=== PATIENT | female | born 1985 | race Caucasian/White ===

== ENCOUNTER 2019-05-28 12:50 | Emergency (ER) | payer BC ==
--- NOTE | 2019-05-28 13:31 | EDM.PDOC ---
ED HPI GENERAL MEDICAL PROBLEM - General Chief Complaint: Lower Extremity Injury/Pain Stated Complaint: L ANKLE INJURY Time Seen by Provider: 05/28/19 13:20 Source of Information: Reports: Patient, Family (spouse) - History of Present Illness INITIAL COMMENTS - FREE TEXT/NARRATIVE: 33-year-old female presents to the ED for evaluation of left lower extremity injury last evening. She states her dogs had soiled one of the rugs in the bathroom and she went to remove it and slipped on the wet floor falling to the floor. Patient has previous fracture of the heel aspect of her ankle requiring open reduction internal fixation in September of last year. Initially she just thought it was bruised but one of her kids actually bumped her ankle this morning and made her cry it was so painful. Is able to partially weight-bear. His pain in her foot ankle and knee on the left side. Onset: Sudden Onset Date: 05/27/19 Onset Time: 20:00 Duration: Hour(s): Location: Reports: Lower Extremity, Left (Has pain left ankle left foot and left knee.) Quality: Reports: Ache, Throbbing Severity: Moderate Improves with: Reports: Rest Worsens with: Reports: Movement (Partial weightbearing and movement.) Context: Reports: Trauma (Left on a wet floor. Occurred in the bathroom at home. ). 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 Left Ankle Pain Score (Numeric/FACES): 5 - Related Data Allergies Allergy/AdvReac Type Severity Reaction Status Date / Time No Known Allergies Allergy Verified 05/28/19 13:01 Home Meds: Home Meds Venlafaxine [Effexor XR] 150 mg PO DAILY 05/28/19 [History] oxyCODONE HCl/Acetaminophen [Percocet 5-325 mg Tablet] 1 - 2 each PO Q4H PRN # 16 tablet 05/28/19 [Rx] Past Medical History Psychiatric History: Reports: Anxiety, Depression - Past Surgical History Musculoskeletal Surgical History: Reports: Other (See Below) Other Musculoskeletal Surgeries/Procedures:: ankle surgery, wrist surgery, elbow surgery, hip surgery Social & Family History - Tobacco Use Smoking Status *Q: Current Every Day Smoker Years of Tobacco use: 16 Packs/Tins Daily: 0.1 - Caffeine Use Caffeine Use: Reports: Coffee - Recreational Drug Use Recreational Drug Use: No Review of Systems - Review of Systems Review Of Systems: See Below Constitutional: Reports: No Symptoms Eyes: Reports: No Symptoms Ears: Reports: No Symptoms Nose: Reports: No Symptoms Mouth/Throat: Reports: No Symptoms Respiratory: Reports: No Symptoms Cardiovascular: Reports: No Symptoms GI/Abdominal: Reports: No Symptoms Genitourinary: Reports: No Symptoms (Left ankle and knee and foot pain since slipping and falling last night.) Musculoskeletal: Reports: Joint Pain Skin: Reports: No Symptoms Neurological: Reports: No Symptoms Psychiatric: Reports: No Symptoms ED EXAM, GENERAL - Physical Exam Exam: See Below Exam Limited By: No Limitations General Appearance: Alert, WD/WN, Mild Distress, Other (Temp 36.6. Heart rate 100. Respiratory is 16 with O2 sats 100% on room air. BP 105//78) Peripheral Pulses: 3+: Posterior Tibial (L), Posterior Tibial (R), Dorsalis Pedis (L), Dorsalis Pedis (R) Extremities: Other (Examination was limited to the left lower extremity. She is complaining of knee pain but there is no traumatic effusion within the knee. No femoral articulation is normal. She has some pain along the medial joint space and particularly the MCL at the joint space. She has pain in her tib-fib particularly posteriorly in the distribution of the gastrocnemius and soleus muscles at the juncture of the Achilles tendon posteriorly. A healing surgical wound medial aspect of the right ankle which is still reddened. His swelling both medial and lateral aspects of the ankle. He has pain to palpation over fifth metatarsal head and squeeze test of the medics) Neurological: Alert, Oriented, CN II-XII Intact, Normal Cognition, Normal Gait Psychiatric: Normal Affect, Normal Mood Skin Exam: Warm, Dry, Intact, Normal Color, No Rash ED TRAUMA EXTREMITY PROCEDURES - Splinting Left Lower Extremity Splint Site: below knee splint Pre-Procedure NV Status: Normal Post-Procedure NV Status: Normal Splint Material: Fiberglass Splint Design: Stirrup, Posterior Applied & Form Fitted By: Provider Provider Post-Splint Application NV Check: NV Status Normal Complications: No Course - Vital Signs Last Recorded V/S: Last Vital Signs Temp 36.6 C 05/28/19 12:57 Pulse 100 05/28/19 12:57 Resp 16 05/28/19 12:57 BP 105/78 05/28/19 12:57 Pulse Ox 100 05/28/19 12:57 - Orders/Labs/Meds Orders: Active Orders 24 hr Category Date Time Status Foot Comp Min 3V Lt [CR] Stat Exams 05/28/19 13:25 Taken Tibia Fibula Lt [CR] Stat Exams 05/28/19 13:23 Taken DME for Discharge [COMM] Routine Oth 05/28/19 15:46 Ordered Durable Medical Equipment for Discharge [DME for Oth 05/28/19 15:47 Ordered Discharge] [COMM] Stat - Radiology Interpretation Free Text/Narrative:: 33-year-old female presents to the ED with an acute injury to her left lower extremity that occurred last evening at home when she slipped on wet bathroom floor. She states she slipped bad enough and twisted the foot and ankle bad enough to cause her to fall to the floor. She's had open reduction internal fixation of the medial aspect of her ankle in September of last year. She still has an angry slightly keloid erythematous scar on the medial aspect of her left there is no true traumatic effusion of the knee. She has some pain along the medial collateral ligament of the knee. She has pain on firm palpation of the posterior calf and mid tib-fib. Strain the Achilles tendon area Pain and swelling both medial and lateral aspects of the ankle and pain on compression of the fifth metatarsal as well. Plan she will require x-rays of the tib-fib the ankle and the foot on the left side. - Re-Assessments/Exams Free Text/Narrative Re-Assessment/Exam: 05/28/19 15:30: I have spoken with Dr. Patel and he has reviewed her x-rays as she has a fracture of the distal posterior malleolus articular extension and minimal displacement. He indicates that is not large enough to require surgical management. For the patient was placed in a posterior slab Ortho-Glass splint and a Ortho-Glass stirrup splint to maintain current position of the bone fragments. Now is too painful for her to get back in her cast boot brace. To 12 days after he reviews her in clinic she will be able to use the cast boot brace. In the meantime she'll be nonweightbearing crutch walking. She will elevate the foot is much as possible for the next 2-3 days and apply ice pack one half hour out of every 4 hours. I did provide her with Percocet tabs 5/3/25 milligrams strength one or 2 every 4-6 hours as needed for pain relief not controlled by Motrin alone. 16 tablet provided. She is to phone Dr. Patel's office and arrange her own appointment. Departure - Departure Time of Disposition: 15:44 Disposition: Home, Self-Care 01 Condition: Fair Clinical Impression: Fracture of tibia MCL sprain of left knee Qualifiers: Encounter type: initial encounter Qualified Code(s): S83.412A - Sprain of medial collateral ligament of left knee, initial encounter Left ankle sprain Qualifiers: Encounter type: initial encounter Involved ligament of ankle: calcaneofibular ligament Qualified Code(s): S93.412A - Sprain of calcaneofibular ligament of left ankle, initial encounter Fracture of distal end of left tibia Qualifiers: Encounter type: initial encounter Fracture type: closed Fracture alignment: displaced - Discharge Information *PRESCRIPTION DRUG MONITORING PROGRAM REVIEWED*: Not Applicable *COPY OF PRESCRIPTION DRUG MONITORING REPORT IN PATIENT GABRIELLA: Not Applicable Prescriptions: oxyCODONE HCl/Acetaminophen [Percocet 5-325 mg Tablet] 1 - 2 each PO Q4H PRN # 16 tablet PRN Reason: pain relief. Referrals: PCP,None [Primary Care Provider] - Forms: ED Department Discharge Additional Instructions: Evaluation emergency him today in regards to acute injury to your left ankle and knee due to a slip and fall on wet surface in the bathroom yesterday evening. Examination of your knee reveals a grade 1 strain of the medial collateral ligament. This will heal on its own over the next 10-14 days. The tib -fib reveal there is a small fracture of the posterior malleolus of the tibia bone but not large enough to require surgical repair. I did consult with orthopedic surgeon in this regard. He did not disrupt any of your hardware on the medial aspect of your ankle from previous injury in September of last year. He is sprain of the ligaments on the lateral aspect of the ankle. There are no fractures within your foot bones. It is therefore a posterior slab and Ortho- Glass stirrup splint that should be left in place for the next 10-12 days and then after that it could be removed and likely he will build to tolerate your cast boot brace. Phone Dr. Patel's office and arrange an appointment. His number is [phone]. Ideally he should see you in about 10-12 days time. Elevate her foot is much as possible for the next 2 days. May apply ice pack even over the splint for one half hour out of every 4 hours for the next 2 days to help reduce swelling. Nonweightbearing crutch walking until follow-up with orthopedic surgeon. May use Motrin 600 mg every 6 hours to reduce pain and inflammation. May then use Percocet tablets 5/325 mg one or 2 tablets every 4-6 hours necessary for pain relief not provided by Motrin alone. She the pain the last 3 or 4 days and then start to resolve once the swelling goes down. Sepsis Event Note - Evaluation Sepsis Screening Result: No Definite Risk - Focused Exam Vital Signs: Vital Signs Temp Pulse Resp BP Pulse Ox 05/28/19 12:57 36.6 C 100 16 105/78 100 Date Exam was Performed: 05/28/19 Time Exam was Performed: 15:51 - My Orders Last 24 Hours: My Active Orders 05/28/19 13:23 Tibia Fibula Lt [CR] Stat 05/28/19 13:25 Foot Comp Min 3V Lt [CR] Stat 05/28/19 15:46 DME for Discharge [COMM] Routine 05/28/19 15:47 Durable Medical Equipment for Discharge [DME for Discharge] [COMM] Stat - Assessment/Plan Last 24 Hours: My Active Orders 05/28/19 13:23 Tibia Fibula Lt [CR] Stat 05/28/19 13:25 Foot Comp Min 3V Lt [CR] Stat 05/28/19 15:46 DME for Discharge [COMM] Routine 05/28/19 15:47 Durable Medical Equipment for Discharge [DME for Discharge] [COMM] Stat
--- NOTE | 2019-05-28 15:30 | CR ---
Left ankle: Four views of the left ankle were obtained. Comparison: No previous left ankle study. Plate and screws are noted within the distal tibia. Fracture is noted within the lateral corner of the tibia. This fracture shows articular extension as well as slight displacement. Fracture line is widened by about 3 mm. Ankle mortise is symmetric. No additional fracture or other abnormality is appreciated. Impression: 1. Fracture within the lateral tip of the distal tibia with articular extension and minimal displacement. 2. No additional abnormality is appreciated. Diagnostic code #3 This report was dictated in [place] Standard Time
--- NOTE | 2019-05-28 15:58 | CR ---
Left tibia and fibula: AP and lateral views of the left tibia and fibula were obtained. Fracture is again noted off the lateral corner of the distal tibia. Articular extension is seen with mild displacement. Plate and screws are noted within the distal tibia. No additional fracture or other bony abnormality is seen. Impression: 1. Fracture within the lateral corner of the distal tibia with articular extension. 2. Left tibia and fibula study shows nothing else acute. Diagnostic code #3 This report was dictated in [place] Standard Time
--- NOTE | 2019-05-28 15:58 | CR ---
Left foot: Four views of the left foot were obtained. Comparison: No prior left foot exam. Orthopedic hardware is seen within the distal tibia. Joint spaces are preserved. No acute fracture or other abnormality is seen. Impression: 1. Nothing acute is seen on left foot study. Diagnostic code #2 This report was dictated in [place] Standard Time
== END 2019-05-28 16:00 | disposition home or self-care (01) ==
LOC: JD.ED 12:50
DX: S82.302A Unspecified fracture of lower end of left tibia, initial encounter for closed fracture (principal); S83.412A Sprain of medial collateral ligament of left knee, initial encounter; S93.412A Sprain of calcaneofibular ligament of left ankle, initial encounter; F41.9 Anxiety disorder, unspecified; F32.9 Major depressive disorder, single episode, unspecified; F17.210 Nicotine dependence, cigarettes, uncomplicated; Z79.899 Other long term (current) drug therapy; W01.0XXA Fall on same level from slipping, tripping and stumbling without subsequent striking against object, initial encounter
CPT/HCPCS: 29515; 73590-26-LT; 73590-LT; 73610-26-LT; 73610-LT; 73630-26-LT; 73630-LT; 99283; 99283-25

== ENCOUNTER 2019-08-14 12:16 | Emergency (ER) | payer BC, MEDICAID ==
[2019-08-14] MEDS ORDERED: FLU Vacc QS2019-20(6MOS+)/PF 60 MCG/0.5 ML SYRINGE IM ONE (13:15)
--- NOTE | 2019-08-14 15:19 | EDM.PDOC ---
ED HPI GENERAL MEDICAL PROBLEM - General Chief Complaint: Respiratory Problem Stated Complaint: CONGESTED,HEADACHE Time Seen by Provider: 08/14/19 13:26 Source of Information: Reports: Patient, RN Notes Reviewed - History of Present Illness INITIAL COMMENTS - FREE TEXT/NARRATIVE: 33-year-old female has been ill with cough and congestion for about 6 days. She was running fever 3 4 days ago but that phase is now better. Still has a lot of nasal and sinus congestion as well as nasal drainage. Cough is mostly nonproductive. She is not been obviously short of breath other than coughing episodes. Her also has been ill. He did test flu negative a few days ago and also preciado negative a few days ago. She works at [employer] and is worried because she has been in contact with a large number of people over the past 7 to 14 days. She did not get a flu shot last fall. Chest Pain Score (Numeric/FACES): 4 - Related Data Allergies Allergy/AdvReac Type Severity Reaction Status Date / Time No Known Allergies Allergy Verified 08/14/19 12:59 Home Meds: Home Meds Venlafaxine [Effexor XR] 150 mg PO DAILY 05/28/19 [History] oxyCODONE HCl/Acetaminophen [Percocet 5-325 mg Tablet] 1 - 2 each PO Q4H PRN # 16 tablet 05/28/19 [Rx] Azithromycin [Zithromax] 500 mg PO DAILY #4 packet 08/14/19 [Rx] Past Medical History Psychiatric History: Reports: Anxiety, Bipolar, Depression - Past Surgical History Musculoskeletal Surgical History: Reports: Other (See Below) Other Musculoskeletal Surgeries/Procedures:: ankle surgery, wrist surgery, elbow surgery, hip surgery Social & Family History - Family History Family Medical History: Noncontributory - Tobacco Use Smoking Status *Q: Current Every Day Smoker Years of Tobacco use: 15 Packs/Tins Daily: 0.5 - Caffeine Use Caffeine Use: Reports: Coffee, Energy Drinks, Soda, Tea - Recreational Drug Use Recreational Drug Use: No ED ROS GENERAL - Review of Systems Review Of Systems: See Below Constitutional: Reports: Fever, Chills HEENT: Reports: Rhinitis, Sinus Problem Respiratory: Reports: Cough. Denies: Shortness of Breath, Sputum Cardiovascular: Reports: Chest Pain (with coughing) GI/Abdominal: Denies: Abdominal Pain, Vomiting Musculoskeletal: Reports: Other (Lysed achiness) Skin: Denies: Rash Neurological: Reports: Headache ED EXAM, GENERAL - Physical Exam Exam: See Below General Appearance: Alert, Mild Distress Eye Exam: Bilateral Eye: PERRL Head: Atraumatic Neck: Supple Respiratory/Chest: No Respiratory Distress, Lungs Clear, Normal Breath Sounds, Rhonchi. No: Wheezing (Mild bilateral) Cardiovascular: Regular Rate, Rhythm Extremities: Normal Inspection, Normal Range of Motion Neurological: Alert, Oriented, No Motor/Sensory Deficits Skin Exam: Warm, Dry, Normal Color Course - Vital Signs Last Recorded V/S: Last Vital Signs Temp 98.2 F 08/14/19 12:28 Pulse 79 08/14/19 12:28 Resp 19 08/14/19 12:28 BP 124/78 08/14/19 12:28 Pulse Ox 100 08/14/19 12:28 - Orders/Labs/Meds Orders: Active Orders 24 hr Category Date Time Status Influenza Vaccine Charge [RC] .DISCHARGE Care 08/14/19 13:03 Active Chest 1V Frontal [CR] Stat Exams 08/14/19 13:42 Taken CORONAVIRUS COVID-19 PCR PHL [MREF] Stat Lab 08/14/19 15:23 Received Isolation [COMM] Routine Oth 08/14/19 13:39 Ordered Meds: Medications Discontinued Medications Generic Name Dose Route Start Last Admin Trade Name Kenyon PRN Reason Stop Dose Admin Influenza Virus Vaccine 60 mcg 08/14/19 13:15 Fluzone Quad [id number] Syringe IM 08/14/19 13:16 .ONCE ONE - Re-Assessments/Exams Free Text/Narrative Re-Assessment/Exam: 08/14/19 16:15 Flu screen is negative, chest x-ray does show increased bronchial markings, especially on the left. Do not see any consolidation type infiltrate. She is extremely worried because of her large amount of contact with sick people in the past 1 to 2 weeks with her job at [employer]. Therefore with her prolonged symptoms and negative flu screen she is a candidate for preciado screening which will be done. Departure - Departure Time of Disposition: 15:15 Disposition: Home, Self-Care 01 Condition: Fair Clinical Impression: Viral upper respiratory infection, Bronchitis - Discharge Information Prescriptions: Azithromycin [Zithromax] 500 mg PO DAILY #4 packet Instructions: Upper Respiratory Infection, Adult, [id number] Referrals: Ny Aviles NP [Primary Care Provider] - Forms: ED Department Discharge Additional Instructions: Influenza screen was negative, your chest x-ray shows bronchitis, possible early walking bronchial pneumonia. You have been swabbed for preciado screening. That will be sent to the state lab tomorrow and will likely be run tomorrow afternoon. Someone from the hospital will be calling you tomorrow evening or morning with results. I would like to have you not work until you do have results with current plan to not work until Tuesday at the earliest. In the meantime Zithromax antibiotic 500 mg daily for 4 days. Vaporizer or steam as needed. You can also alternate Tylenol and ibuprofen as needed. You can take a decongestant such as Sudafed as needed. Follow up clinic if not much better within 3 to 5 days as expected. Sepsis Event Note - Evaluation Sepsis Screening Result: No Definite Risk - Focused Exam Vital Signs: Vital Signs Temp Pulse Resp BP Pulse Ox 08/14/19 12:28 98.2 F 79 19 124/78 100 Date Exam was Performed: 08/14/19 Time Exam was Performed: 15:55 - My Orders Last 24 Hours: My Active Orders 08/14/19 13:03 Influenza Vaccine Charge [RC] .DISCHARGE 08/14/19 13:39 Isolation [COMM] Routine 08/14/19 13:42 Chest 1V Frontal [CR] Stat 08/14/19 15:23 CORONAVIRUS COVID-19 PCR PHL [MREF] Stat - Assessment/Plan Last 24 Hours: My Active Orders 08/14/19 13:03 Influenza Vaccine Charge [RC] .DISCHARGE 08/14/19 13:39 Isolation [COMM] Routine 08/14/19 13:42 Chest 1V Frontal [CR] Stat 08/14/19 15:23 CORONAVIRUS COVID-19 PCR PHL [MREF] Stat
--- NOTE | 2019-08-14 17:59 | CR ---
Chest: Portable view of the chest was obtained. Comparison: No previous chest x-rays available. Heart size and mediastinum are normal. Lungs are clear. Minimal scoliosis is noted within the spine. Impression: 1. Nothing acute seen on portable chest x-ray. Diagnostic code #2 This report was dictated in MDT
== END 2019-08-14 16:10 | disposition home or self-care (01) ==
LOC: JD.ED 12:16
DX: J40 Bronchitis, not specified as acute or chronic (principal); J06.9 Acute upper respiratory infection, unspecified; F31.9 Bipolar disorder, unspecified; F41.9 Anxiety disorder, unspecified; F17.210 Nicotine dependence, cigarettes, uncomplicated; Z79.899 Other long term (current) drug therapy
CPT/HCPCS: 71045; 71045-26; 87804; 90686; 99283-25; G0008; U0001

== ENCOUNTER 2019-11-25 21:56 | Emergency (ER) | payer MEDICAID, OTHER ==
--- NOTE | 2019-11-25 22:01 | EDM.PDOC ---
ED HPI GENERAL MEDICAL PROBLEM - General Chief Complaint: Lower Extremity Injury/Pain Stated Complaint: toe injury Time Seen by Provider: 11/25/19 22:01 - History of Present Illness INITIAL COMMENTS - FREE TEXT/NARRATIVE: 34-year-old female presents the emergency room with a right forefoot injury. Last evening the patient was walking across a parking lot and did not see a curb and stuffed her forefoot right into it. Since that time she has had significant difficulty walking. The patient has a walking boot at home and has been using that to hobble along today. The patient denies any numbness or tingling in her toes however they hurt if they are moving the wrong way. She does have difficulty walking even with a walking boot. However, is able to get around patient had ankle surgery about a year ago and was put in a walking boot she does not have any pain up and around her ankle. The pain seems to involve the great toe first ray second and third toe and associated metatarsals. She does not seem to have any hindfoot pain. She is tried 1 Aleve 1 ibuprofen and 1 full strength aspirin Left Feet Pain Score (Numeric/FACES): 7 - Related Data Allergies Allergy/AdvReac Type Severity Reaction Status Date / Time No Known Allergies Allergy Verified 08/14/19 12:59 Home Meds: Home Meds Venlafaxine [Effexor XR] 150 mg PO DAILY 05/28/19 [History] Past Medical History Psychiatric History: Reports: Anxiety, Bipolar, Depression - Past Surgical History Musculoskeletal Surgical History: Reports: Other (See Below) Other Musculoskeletal Surgeries/Procedures:: ankle surgery, wrist surgery, elbow surgery, hip surgery Social & Family History - Family History Family Medical History: Noncontributory - Caffeine Use Caffeine Use: Reports: Coffee, Energy Drinks, Soda, Tea Review of Systems - Review of Systems Review Of Systems: See Below Constitutional: Reports: No Symptoms Eyes: Reports: No Symptoms Respiratory: Reports: No Symptoms Cardiovascular: Reports: No Symptoms GI/Abdominal: Reports: No Symptoms Genitourinary: Reports: No Symptoms, Other (Patient stopped her control 4 months ago contemplating . Her last menstrual period was shortly after the middle of last month.) Neurological: Reports: No Symptoms ED EXAM, GENERAL - Physical Exam Exam: See Below Exam Limited By: No Limitations General Appearance: Alert, No Apparent Distress Respiratory/Chest: No Respiratory Distress, Lungs Clear, Normal Breath Sounds Cardiovascular: Regular Rate, Rhythm, No Edema, No Murmur Back Exam: Other (Nation the right foot shows normal neurologic and vascular status posterior tibial and dorsalis pedis pulses are all normal. Sensation is intact in all digits the patient does not want to move her digits at all she is got some swelling around the metatarsal phalangeal joints especially of the great toe and second toe.) Course - Vital Signs Last Recorded V/S: Last Vital Signs Temp 36.5 C 11/25/19 22:04 Pulse 84 11/25/19 22:04 Resp 20 11/25/19 22:04 BP 124/88 11/25/19 22:04 Pulse Ox 99 11/25/19 22:04 - Orders/Labs/Meds Orders: Active Orders 24 hr Category Date Time Status Foot Comp Min 3V Lt [CR] Stat Exams 11/25/19 22:06 Taken - Re-Assessments/Exams Free Text/Narrative Re-Assessment/Exam: 11/25/19 22:14 With her uncertain status albeit the patient does not think she is I still recommended getting an x-ray as we cannot really do a thorough exam because of the discomfort and the possibility of something broke is real. The patient declines on a test that she says would be too early anyway. And agrees to proceed with an x-ray 11/25/19 23:00 3 of the affected foot on the left shows hardware in the ankle from her surgery a year ago. Forefoot shows a fracture of the distal phalanx on the great toe this involves the joint ulnar aspect mild displacement. View there is potentially a nondisplaced fracture oblique orientation of the middle phalanx. We will have nursing phil tape the third and fourth toe together and then the great toe to the third and fourth toe. The patient will continue to wear her walking boot. I recommended following up with orthopedics later this week Departure - Departure Time of Disposition: 23:06 Disposition: Home, Self-Care 01 Clinical Impression: Fracture of great toe of right foot, Fracture of second toe, right, closed - Discharge Information Referrals: Ny Aviles NP [Primary Care Provider] - Issa Patel MD [Physician] - Forms: ED Department Discharge, ED Return to Work/School Form Additional Instructions: Return to the emergency room with any questions problems or worsening symptoms Keep your foot elevated as much as you can. Use your walking boot all the time. Keep your second third toe phil taped together and then phil tape your big toe to these other 2. Follow-up with orthopedics at the end of this week or early next week. Ibuprofen 600 to 800 mg 3 times a day with meals or naproxen 440 mg twice daily with meals. Sepsis Event Note (ED) - Focused Exam Vital Signs: Vital Signs Temp Pulse Resp BP Pulse Ox 11/25/19 22:04 36.5 C 84 20 124/88 99 - My Orders Last 24 Hours: My Active Orders 11/25/19 22:06 Foot Comp Min 3V Lt [CR] Stat - Assessment/Plan Last 24 Hours: My Active Orders 11/25/19 22:06 Foot Comp Min 3V Lt [CR] Stat
--- NOTE | 2019-11-26 07:16 | CR ---
Left foot: 4 views of the left foot were obtained. Comparison: No prior foot study. Plate and screws are partially visualized within the distal tibia. No fracture, dislocation or other bony abnormality is appreciated. Impression: 1. Plate and screws partially visualized within the distal tibia. 2. Left foot study is otherwise unremarkable. Diagnostic code #1 This report was dictated in MDT
== END 2019-11-25 23:20 | disposition home or self-care (01) ==
LOC: JD.ED 21:56
DX: S92.421A Displaced fracture of distal phalanx of right great toe, initial encounter for closed fracture (principal); S92.521A Displaced fracture of middle phalanx of right lesser toe(s), initial encounter for closed fracture; F41.9 Anxiety disorder, unspecified; F31.9 Bipolar disorder, unspecified; Z79.899 Other long term (current) drug therapy; W22.8XXA Striking against or struck by other objects, initial encounter; Y92.481 Parking lot as the place of occurrence of the external cause
CPT/HCPCS: 73630-26-LT; 73630-LT; 99282; 99283-25

== ENCOUNTER 2020-01-16 16:20 | Emergency (ER) | payer MEDICAID ==
[2020-01-16] MEDS ORDERED: Sodium Chloride 0.9% 1,000 ML IV STA (17:58)
[2020-01-16] MEDS ORDERED: Sodium Chloride 0.9% 10 ML Syringe FLUSH PRN (17:58)
[2020-01-16] MEDS ORDERED: Ondansetron 4 MG/2 ML SDV IVPUSH ONE (17:58)
[2020-01-16] MEDS ORDERED: HYDROmorphone 0.5 MG/0.5 ML Syringe IVPUSH ONE (17:59)
[2020-01-16] MEDS ORDERED: HYDROmorphone 0.5 MG/0.5 ML Syringe ONE (18:37)
--- NOTE | 2020-01-16 19:13 | EDM.PDOC ---
ED HPI GENERAL MEDICAL PROBLEM - General Chief Complaint: Gastrointestinal Problem Stated Complaint: WEAK/ABDOMINAL PAIN/DIARRHEA/BODYACHE Time Seen by Provider: 01/16/20 17:30 Source of Information: Reports: Patient History Limitations: Reports: No Limitations - History of Present Illness INITIAL COMMENTS - FREE TEXT/NARRATIVE: The patient presents with a headache, body aches, abdominal cramps, nausea, vomiting and diarrhea. This started today. She denies not have a fever but she does have chills. She has no cough, chest pain or shortness of breath. She still has her gallbladder and appendix. She has no dysuria. She works at [employer] so she may have been exposed to COVID 19. The last time she was checked was in July. She did not eat any bad food and she has not been around anyone who is sick like this. Onset: Gradual Duration: Day(s): Location: Reports: Head, Abdomen, Other (muscle) Quality: Reports: Ache Severity: Moderate Improves with: Reports: None Worsens with: Reports: None Associated Symptoms: Reports: Fever/Chills, Headaches, Nausea/Vomiting. Denies: Chest Pain, Cough, Shortness of Breath Abdomen Pain Score (Numeric/FACES): 4 - Related Data Allergies Allergy/AdvReac Type Severity Reaction Status Date / Time No Known Allergies Allergy Verified 01/16/20 17:20 Home Meds: Home Meds Venlafaxine [Effexor XR] 150 mg PO DAILY 05/28/19 [History] Loratadine [Claritin] 10 mg PO DAILY 01/16/20 [History] Ondansetron [Zofran ODT] 4 mg PO Q6H PRN #20 tab.dis 01/16/20 [Rx] busPIRone [Buspar] 15 mg PO BID 01/16/20 [History] Past Medical History Psychiatric History: Reports: Anxiety, Bipolar, Depression - Past Surgical History Musculoskeletal Surgical History: Reports: Other (See Below) Other Musculoskeletal Surgeries/Procedures:: ankle surgery, wrist surgery, elbow surgery, hip surgery Social & Family History - Family History Family Medical History: Noncontributory - Tobacco Use Smoking Status *Q: Former Smoker Used Tobacco, but Quit: Yes Month/Year Tobacco Last Used: 12/2019 - Caffeine Use Caffeine Use: Reports: Energy Drinks - Recreational Drug Use Recreational Drug Use: No ED ROS GENERAL - Review of Systems Review Of Systems: See Below Constitutional: Reports: Chills. Denies: Fever HEENT: Reports: No Symptoms Respiratory: Reports: No Symptoms Cardiovascular: Reports: No Symptoms Endocrine: Reports: No Symptoms GI/Abdominal: Reports: Abdominal Pain, Diarrhea, Nausea, Vomiting : Reports: No Symptoms Musculoskeletal: Reports: Muscle Pain ED EXAM, GI/ABD - Physical Exam Exam: See Below Exam Limited By: No Limitations General Appearance: Alert, No Apparent Distress Ears: Normal External Exam Nose: Normal Inspection Head: Atraumatic, Normocephalic Neck: Normal Inspection Respiratory/Chest: No Respiratory Distress, Lungs Clear, Normal Breath Sounds Cardiovascular: Regular Rate, Rhythm, No Edema, No Murmur GI/Abdominal Exam: Soft, No Organomegaly, No Mass, Tender (mild generalized tenderness) Course - Vital Signs Last Recorded V/S: Last Vital Signs Temp 98.1 F 01/16/20 17:15 Pulse 79 01/16/20 17:15 Resp 15 01/16/20 17:15 BP 124/76 01/16/20 17:15 Pulse Ox 98 01/16/20 17:15 - Orders/Labs/Meds Orders: Active Orders 24 hr Category Date Time Status Peripheral IV Care [RC] . DIRECTED Care 01/16/20 17:58 Active CORONAVIRUS COVID-19 PCR PHL Stat Lab 01/16/20 18:00 Received Sodium Chloride 0.9% [Saline Flush] Med 01/16/20 17:58 Active 10 ml FLUSH ASDIRECTED PRN ED Antiemetic Medication Reflex [OM.PC] Stat Oth 01/16/20 17:59 Ordered Peripheral IV Insertion Adult [OM.PC] Stat Oth 01/16/20 17:58 Ordered Medication Orders Sodium Chloride (Saline Flush) 10 ml FLUSH ASDIRECTED PRN PRN Reason: Keep Vein Open Last Admin: 01/16/20 18:30 Dose: 10 ml Documented by: TAYA Labs: Laboratory Tests 01/16/20 01/16/20 01/16/20 Range/Units 18:25 18:25 18:25 WBC 5.63 (3.98-10.04) K/mm3 RBC 4.79 (3.98-5.22) M/mm3 Hgb 13.1 (11.2-15.7) gm/dl Hct 41.3 (34.1-44.9) % MCV 86.2 (79.4-94.8) fl MCH 27.3 (25.6-32.2) pg MCHC 31.7 L (32.2-35.5) g/dl RDW Std Deviation 42.4 (36.4-46.3) fL Plt Count 243 (182-369) K/mm3 MPV 11.1 (9.4-12.3) fl Neut % (Auto) 51.6 (34.0-71.1) % Lymph % (Auto) 31.6 (19.3-51.7) % [place] % (Auto) 13.1 H (4.7-12.5) % Eos % (Auto) 3.0 (0.7-5.8) Baso % (Auto) 0.5 (0.1-1.2) % Neut # (Auto) 2.90 (1.56-6.13) K/mm3 Lymph # (Auto) 1.78 (1.18-3.74) K/mm3 [place] # (Auto) 0.74 H (0.24-0.36) K/mm3 Eos # (Auto) 0.17 (0.04-0.36) K/mm3 Baso # (Auto) 0.03 (0.01-0.08) K/mm3 Sodium 138 (136-145) mEq/L Potassium 3.9 (3.5-5.1) mEq/L Chloride 105 (98-107) mEq/L Carbon Dioxide 29 (21-32) mEq/L Anion Gap 7.9 (5-15) BUN 19 H (7-18) mg/dL Creatinine 0.8 (0.55-1.02) mg/dL Est Cr Clr Drug Dosing 101.84 mL/min Estimated GFR (MDRD) > 60 (>60) mL/min BUN/Creatinine Ratio 23.8 H (14-18) Glucose 101 (74-106) mg/dL Calcium 9.0 (8.5-10.1) mg/dL Total Bilirubin 0.2 (0.2-1.0) mg/dL AST 36 (15-37) U/L ALT 28 (14-59) U/L Alkaline Phosphatase 36 L (46-116) U/L Total Protein 7.0 (6.4-8.2) g/dl Albumin 3.9 (3.4-5.0) g/dl Globulin 3.1 gm/dL Albumin/Globulin Ratio 1.3 (1-2) Lipase 163 (73-393) U/L HCG, Qual Negative (NEGATIVE) Urine Color (Yellow) Urine Appearance (Clear) Urine pH (5.0-8.0) Ur Specific [place] (1.005-1.030) Urine Protein (Negative) Urine Glucose (UA) (Negative) Urine Ketones (Negative) Urine Occult Blood (Negative) Urine Nitrite (Negative) Urine Bilirubin (Negative) Urine Urobilinogen (0.2-1.0) Ur Leukocyte Esterase (Negative) Urine RBC (0-5) /hpf Urine WBC (0-5) /hpf Ur Squamous Epith Cells (0-5) /hpf Urine Bacteria (FEW) /hpf Urine Mucus (FEW) /hpf 01/16/20 Range/Units 18:45 WBC (3.98-10.04) K/mm3 RBC (3.98-5.22) M/mm3 Hgb (11.2-15.7) gm/dl Hct (34.1-44.9) % MCV (79.4-94.8) fl MCH (25.6-32.2) pg MCHC (32.2-35.5) g/dl RDW Std Deviation (36.4-46.3) fL Plt Count (182-369) K/mm3 MPV (9.4-12.3) fl Neut % (Auto) (34.0-71.1) % Lymph % (Auto) (19.3-51.7) % [place] % (Auto) (4.7-12.5) % Eos % (Auto) (0.7-5.8) Baso % (Auto) (0.1-1.2) % Neut # (Auto) (1.56-6.13) K/mm3 Lymph # (Auto) (1.18-3.74) K/mm3 [place] # (Auto) (0.24-0.36) K/mm3 Eos # (Auto) (0.04-0.36) K/mm3 Baso # (Auto) (0.01-0.08) K/mm3 Sodium (136-145) mEq/L Potassium (3.5-5.1) mEq/L Chloride (98-107) mEq/L Carbon Dioxide (21-32) mEq/L Anion Gap (5-15) BUN (7-18) mg/dL Creatinine (0.55-1.02) mg/dL Est Cr Clr Drug Dosing mL/min Estimated GFR (MDRD) (>60) mL/min BUN/Creatinine Ratio (14-18) Glucose (74-106) mg/dL Calcium (8.5-10.1) mg/dL Total Bilirubin (0.2-1.0) mg/dL AST (15-37) U/L ALT (14-59) U/L Alkaline Phosphatase (46-116) U/L Total Protein (6.4-8.2) g/dl Albumin (3.4-5.0) g/dl Globulin gm/dL Albumin/Globulin Ratio (1-2) Lipase (73-393) U/L HCG, Qual (NEGATIVE) Urine Color Yellow (Yellow) Urine Appearance Clear (Clear) Urine pH 6.0 (5.0-8.0) Ur Specific [place] > or = 1.030 (1.005-1.030) Urine Protein Negative (Negative) Urine Glucose (UA) Negative (Negative) Urine Ketones Trace H (Negative) Urine Occult Blood Negative (Negative) Urine Nitrite Negative (Negative) Urine Bilirubin Negative (Negative) Urine Urobilinogen 1.0 (0.2-1.0) Ur Leukocyte Esterase Negative (Negative) Urine RBC 0-5 (0-5) /hpf Urine WBC 0-5 (0-5) /hpf Ur Squamous Epith Cells 5-10 H (0-5) /hpf Urine Bacteria Few (FEW) /hpf Urine Mucus Few (FEW) /hpf Meds: Medications Generic Name Dose Route Start Last Admin Trade Name Freq PRN Reason Stop Dose Admin Sodium Chloride 10 ml 01/16/20 17:58 01/16/20 18:30 Saline Flush FLUSH 10 ml ASDIRECTED PRN Administration Keep Vein Open Discontinued Medications Generic Name Dose Route Start Last Admin Trade Name Freq PRN Reason Stop Dose Admin Hydromorphone HCl 0.5 mg 01/16/20 17:59 01/16/20 18:30 Dilaudid IVPUSH 01/16/20 18:00 0.5 mg ONETIME ONE Administration Hydromorphone HCl Confirm 01/16/20 18:37 01/16/20 18:52 Dilaudid Administered 01/16/20 18:38 Not Given Dose 0.5 mg .ROUTE .STK-MED ONE Sodium Chloride 1,000 mls @ 1,000 mls/hr 01/16/20 17:58 01/16/20 18:29 Normal Saline IV 01/16/20 18:57 1,000 mls/hr .BOLUS STA Administration Ondansetron HCl 4 mg 01/16/20 17:58 01/16/20 18:29 Zofran IVPUSH 01/16/20 17:59 4 mg ONETIME ONE Administration - Re-Assessments/Exams Free Text/Narrative Re-Assessment/Exam: 01/16/20 19:12 I ordered an IV NS 1L bolus, zofran 4mg IV, dilaudid 0.5mg IV, labs, UA and COVID 19 test. 01/16/20 19:28 Her CBC and CMP look good. Her lipase is normal. Her HCG is negative and her UA shows no UTI. She feels better. I will discharge her home with some zofran. Departure - Departure Time of Disposition: 19:30 Disposition: Home, Self-Care 01 Condition: Good Clinical Impression: Gastroenteritis - Discharge Information *PRESCRIPTION DRUG MONITORING PROGRAM REVIEWED*: Not Applicable *COPY OF PRESCRIPTION DRUG MONITORING REPORT IN PATIENT GABRIELLA: Not Applicable Prescriptions: Ondansetron [Zofran ODT] 4 mg PO Q6H PRN #20 tab.dis PRN Reason: Nausea\vomiting Referrals: Ny Aviles NP [Primary Care Provider] - Forms: ED Department Discharge Additional Instructions: Go home and rest. Drink plenty of fluids. Take zofran every 6 hours as needed for nausea or vomiting. Take motrin or tylenol for pain. Quarantine yourself until you get the results from the COVID 19 test. Please return if you are worse. Sepsis Event Note (ED) - Evaluation Sepsis Screening Result: No Definite Risk - Focused Exam Vital Signs: Vital Signs Temp Pulse Resp BP Pulse Ox 01/16/20 17:15 98.1 F 79 15 124/76 98 - My Orders Last 24 Hours: My Active Orders 01/16/20 17:58 Peripheral IV Care [RC] . DIRECTED Sodium Chloride 0.9% [Saline Flush] 10 ml FLUSH ASDIRECTED PRN Peripheral IV Insertion Adult [OM.PC] Stat 01/16/20 17:59 ED Antiemetic Medication Reflex [OM.PC] Stat 01/16/20 18:00 CORONAVIRUS COVID-19 PCR PHL Stat - Assessment/Plan Last 24 Hours: My Active Orders 01/16/20 17:58 Peripheral IV Care [RC] . DIRECTED Sodium Chloride 0.9% [Saline Flush] 10 ml FLUSH ASDIRECTED PRN Peripheral IV Insertion Adult [OM.PC] Stat 01/16/20 17:59 ED Antiemetic Medication Reflex [OM.PC] Stat 01/16/20 18:00 CORONAVIRUS COVID-19 PCR PHL Stat
== END 2020-01-16 19:50 | disposition home or self-care (01) ==
LOC: JD.ED 16:20
DX: K52.9 Noninfective gastroenteritis and colitis, unspecified (principal); F41.9 Anxiety disorder, unspecified; F31.9 Bipolar disorder, unspecified; Z87.891 Personal history of nicotine dependence; Z79.899 Other long term (current) drug therapy; Z20.828 Contact with and (suspected) exposure to other viral communicable diseases
CPT/HCPCS: 36415; 80053; 81001; 83690; 84703; 85025; 87635; 96361; 96374; 96375; 99284; J2405; J7030; 99283; J1170; U0002

== ENCOUNTER 2020-06-14 12:31 | Emergency (ER) | payer BC, MEDICAID ==
--- NOTE | 2020-06-14 13:31 | EDM.PDOC ---
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 She describes the spotting as light. She is not saturating pads. It is visible on the toilet paper when she wipes and occasionally in her underwear. She states upon waking this morning she has had some mild cramping which she describes as constant and dull. Denies any back pain or dysuria. 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 Patient states her miscarriages have been in the first and second trimesters. In the past, she has used Rebecca injections to help maintain , however the decision was made to not use that treatment with this . She had an early OB visit with her TRAILER MECHANIC, Dr. Fabian, on May 12 of this year. Everything was found to be normal at that time. Lower Pelvic Pain Score (Numeric/FACES): 5 - Related Data Allergies Allergy/AdvReac Type Severity Reaction Status Date / Time bee pollen Allergy Difficulty Verified 06/14/20 12:45 Breathing Home Meds: Home Meds Venlafaxine [Effexor XR] 150 mg PO DAILY 05/28/19 [History] Ondansetron [Zofran ODT] 4 mg PO Q6H PRN #20 tab.dis 01/16/20 [Rx] Past Medical History - Past Health History Medical/Surgical History: Denies Medical/Surgical History TRAILER MECHANIC History: Reports: Spontaneous Psychiatric History: Reports: Anxiety, Bipolar, Depression - Past Surgical History Musculoskeletal Surgical History: Reports: Other (See Below) Other Musculoskeletal Surgeries/Procedures:: ankle surgery, wrist surgery, elbow surgery, hip surgery Social & Family History - Family History Family Medical History: No Pertinent Family History - Tobacco Use Tobacco Use Status *Q: Former Tobacco User Years of Tobacco use: 15 Packs/Tins Daily: 0.5 Used Tobacco, but Quit: Yes Month/Year Tobacco Last Used: 12/2019 Second Hand Smoke Exposure: No - Caffeine Use Caffeine Use: Reports: Coffee, Soda - Recreational Drug Use Recreational Drug Use: No ED ROS GENERAL - Review of Systems Review Of Systems: See Below Constitutional: Reports: No Symptoms HEENT: Reports: No Symptoms Respiratory: Reports: No Symptoms Cardiovascular: Reports: No Symptoms Endocrine: Reports: No Symptoms GI/Abdominal: Reports: No Symptoms : Reports: Other (Light vaginal bleeding and mild cramping.) Musculoskeletal: Reports: No Symptoms Skin: Reports: No Symptoms Neurological: Reports: No Symptoms Psychiatric: Reports: No Symptoms Hematologic/Lymphatic: Reports: No Symptoms Immunologic: Reports: No Symptoms ED EXAM - Physical Exam Exam: See Below General Appearance: Alert, WD/WN, No Apparent Distress Respiratory/Chest: No Respiratory Distress, Lungs Clear, Normal Breath Sounds, No Accessory Muscle Use, Chest Non-Tender Cardiovascular: Normal Peripheral Pulses, Regular Rate, Rhythm, No Edema, No Gallop, No JVD, No Murmur, No Rub GI/Abdominal Exam: Normal Bowel Sounds, Soft, Non-Tender, No Organomegaly, No Distention, No Abnormal Bruit, No Mass, Pelvis Stable Heart Tones: Present Heart Tones per Min: 154 Neurological: Alert, Oriented, CN II-XII Intact, Normal Cognition, Normal Gait, Normal Reflexes, No Motor/Sensory Deficits Psychiatric: Normal Affect, Normal Mood Skin Exam: Warm, Dry, Intact, Normal Color, No Rash Course - Vital Signs Last Recorded V/S: Last Vital Signs Temp 96.2 F L 06/14/20 12:38 Pulse 84 06/14/20 12:38 Resp 16 06/14/20 12:38 BP 146/86 H 06/14/20 12:38 Pulse Ox 97 06/14/20 12:38 - Orders/Labs/Meds Labs: Laboratory Tests 06/14/20 06/14/20 06/14/20 Range/Units 13:18 13:18 14:28 WBC 6.32 (3.98-10.04) K/mm3 RBC 4.35 (3.98-5.22) M/mm3 Hgb 12.2 (11.2-15.7) gm/dl Hct 37.1 (34.1-44.9) % MCV 85.3 (79.4-94.8) fl MCH 28.0 (25.6-32.2) pg MCHC 32.9 (32.2-35.5) g/dl RDW Std Deviation 40.3 (36.4-46.3) fL Plt Count 203 (182-369) K/mm3 MPV 11.0 (9.4-12.3) fl Neut % (Auto) 65.8 (34.0-71.1) % Lymph % (Auto) 21.4 (19.3-51.7) % [place] % (Auto) 10.4 (4.7-12.5) % Eos % (Auto) 1.9 (0.7-5.8) Baso % (Auto) 0.2 (0.1-1.2) % Neut # (Auto) 4.16 (1.56-6.13) K/mm3 Lymph # (Auto) 1.35 (1.18-3.74) K/mm3 [place] # (Auto) 0.66 H (0.24-0.36) K/mm3 Eos # (Auto) 0.12 (0.04-0.36) K/mm3 Baso # (Auto) 0.01 (0.01-0.08) K/mm3 Sodium 141 (136-145) mEq/L Potassium 3.5 (3.5-5.1) mEq/L Chloride 106 (98-107) mEq/L Carbon Dioxide 24 (21-32) mEq/L Anion Gap 14.5 (5-15) BUN 7 (7-18) mg/dL Creatinine 0.6 (0.55-1.02) mg/dL Est Cr Clr Drug Dosing 135.79 mL/min Estimated GFR (MDRD) > 60 (>60) mL/min BUN/Creatinine Ratio 11.7 L (14-18) Glucose 105 (74-106) mg/dL Calcium 8.7 (8.5-10.1) mg/dL Total Bilirubin 0.3 (0.2-1.0) mg/dL AST 10 L (15-37) U/L ALT 12 L (14-59) U/L Alkaline Phosphatase 34 L (46-116) U/L Total Protein 6.2 L (6.4-8.2) g/dl Albumin 2.8 L (3.4-5.0) g/dl Globulin 3.4 gm/dL Albumin/Globulin Ratio 0.8 L (1-2) Urine Color Light yellow (Yellow) Urine Appearance Cloudy H (Clear) Urine pH 7.0 (5.0-8.0) Ur Specific [place] 1.025 (1.005-1.030) Urine Protein Negative (Negative) Urine Glucose (UA) Negative (Negative) Urine Ketones Negative (Negative) Urine Occult Blood Trace-lysed H (Negative) Urine Nitrite Negative (Negative) Urine Bilirubin Negative (Negative) Urine Urobilinogen 0.2 (0.2-1.0) Ur Leukocyte Esterase Negative (Negative) Urine RBC 0-5 (0-5) /hpf Urine WBC 0-5 (0-5) /hpf Ur Epithelial Cells 0-5 (0-5) /hpf Amorphous Sediment Moderate H (NOT SEEN) /hpf Urine Bacteria Few (FEW) /hpf Urine Mucus Few (FEW) /hpf - Re-Assessments/Exams Free Text/Narrative Re-Assessment/Exam: 06/14/20 15:15 Hematology was grossly unremarkable. Urinalysis was negative for infection. OB ultrasound shows a single living intrauterine gestation heart rate at 157. Average gestational age is 15 weeks 2 days. There is an area of low attenuation noted within the placenta measuring 1.8 x 2.7 x 2.5 cm. This may represent a venous garrett. Pelvic exam showed no blood or tissue noted within the vagina or cervical os. There are no visible lesions that could be the cause of her bleeding. Case discussed with Dr. Wells. She discussed that venous garrett is a normal incidental finding. No additional precautions needed. We will discharge the patient home with instructions to follow-up with Dr. Fabian. Departure - Departure Time of Disposition: 15:23 Disposition: Home, Self-Care 01 Condition: Good Clinical Impression: Threatened - Discharge Information *PRESCRIPTION DRUG MONITORING PROGRAM REVIEWED*: No *COPY OF PRESCRIPTION DRUG MONITORING REPORT IN PATIENT GABRIELLA: No Instructions: Threatened Miscarriage, [id number] Referrals: Saul Fabian MD [Physician] - Forms: ED Department Discharge Additional Instructions: You were seen in the emergency department today for vaginal spotting for the last week as well as cramping that began today. Work-up included blood work, urinalysis, and a OB ultrasound. Results of your work-up were found to be normal. Recommend that you call Tuesday to set up an appointment with Dr. Fabian for follow-up. If you should experience increased bleeding to the point you are saturating a pad an hour for 2 or more hours or significantly worsening cramping, return to the emergency department. Sepsis Event Note (ED) - Evaluation Sepsis Screening Result: No Definite Risk
--- NOTE | 2020-06-15 11:23 | US ---
Obstetrical ultrasound: Multiple real-time images were obtained transabdominally. Comparison: No previous obstetrical imaging is available. Dates: Working LARS: 12/09/20, gestational age 14 weeks 4 days Current ultrasound: LARS 12/04/20, gestational age 15 weeks 2 days Single intrauterine fetus is seen. Amniotic fluid volume is normal. Hypoechoic area is seen within the placenta compatible with venous garrett measuring about 2.7 cm. Amniotic fluid volume is normal. Maternal ovaries are not visualized. Measurements: [place]-rump length: 9.44 cm - 15 weeks 2 days Heart rate: 156 bpm Impression: 1. Single intrauterine fetus. Dates as noted above. 2. No complicating process is appreciated. Diagnostic code #1
== END 2020-06-14 15:32 | disposition home or self-care (01) ==
LOC: JD.ED 12:31
DX: O20.0 Threatened abortion (principal); Z91.030 Bee allergy status; Z79.899 Other long term (current) drug therapy; Z87.891 Personal history of nicotine dependence; Z3A.14 14 weeks gestation of pregnancy
CPT/HCPCS: 36415; 76815; 76815-26; 80053; 81001; 85025; 99283; 99284-25

== ENCOUNTER 2020-07-13 13:37 | Emergency (ER) | payer MEDICAID ==
[2020-07-13] MEDS ORDERED: Sodium Chloride 0.9% 10 ML Syringe FLUSH PRN (14:18)
[2020-07-13] MEDS ORDERED: Sodium Chloride 0.9% 1,000 ML IV ONE (14:20)
[2020-07-13] MEDS ORDERED: Ondansetron 4 MG/2 ML SDV IVPUSH ONE (14:21)
--- NOTE | 2020-07-13 14:37 | EDM.PDOC ---
ED HPI GENERAL MEDICAL PROBLEM - General Chief Complaint: Gastrointestinal Problem Stated Complaint: 19 WEEKS PREG AND VOMITING Time Seen by Provider: 07/13/20 14:18 Source of Information: Reports: Patient, RN Notes Reviewed History Limitations: Reports: No Limitations - History of Present Illness INITIAL COMMENTS - FREE TEXT/NARRATIVE: Patient is a 34-year-old female who presents to the ED for evaluation of her nausea and vomiting. Patient states she is 19 weeks , she is a G 12 P3 with 8 miscarriages and a stillborn. 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 Patient notes that this is going well, she is still feeling the baby move. Patient notes that last night, while she was at work she developed vomiting, and this is continued all the way through last night and today, and she had some diarrhea that started this morning. She is complaining of a sore throat, bad headache and was not able to keep Tylenol down this morning. Also having some low pelvic discomfort, like it is over her bladder but also feels quite dehydrated she does not feel like she is passing urine as she should. Patient notes that she did recently have travel to [facility] via an airplane. She does state that all of her family members are sick like this as well. She notes that they have not had a meal together however so she does not think it is foodborne illness. She has had no fevers or chills, cough or shortness of breath. Headache Pain Score (Numeric/FACES): 10 Throat Pain Score (Numeric/FACES): 4 Lower Abdomen Pain Score (Numeric/FACES): 6 - Related Data Allergies Allergy/AdvReac Type Severity Reaction Status Date / Time bee pollen Allergy Difficulty Verified 06/14/20 12:45 Breathing Home Meds: Home Meds Venlafaxine [Effexor XR] 150 mg PO DAILY 05/28/19 [History] Ondansetron [Zofran ODT] 4 mg PO Q6H PRN #20 tab.dis 01/16/20 [Rx] Ondansetron [Zofran ODT] 4 mg PO Q8H PRN #30 tab.dis 07/13/20 [Rx] Pnv No.103/Folic/Om3s/Fish Oil [ Gummies] 2 tab PO DAILY 07/13/20 [History] Past Medical History - Past Health History Medical/Surgical History: Denies Medical/Surgical History CORE INSERTER History: Reports: , Spontaneous Psychiatric History: Reports: Anxiety, Bipolar, Depression - Past Surgical History Musculoskeletal Surgical History: Reports: Other (See Below) Other Musculoskeletal Surgeries/Procedures:: ankle surgery, wrist surgery, elbow surgery, hip surgery Social & Family History - Family History Family Medical History: No Pertinent Family History - Tobacco Use Tobacco Use Status *Q: Never Tobacco User - Caffeine Use Caffeine Use: Reports: None - Recreational Drug Use Recreational Drug Use: No ED ROS GENERAL - Review of Systems Review Of Systems: Comprehensive ROS is negative, except as noted in HPI. ED EXAM, GI/ABD - Physical Exam Exam: See Below Exam Limited By: No Limitations General Appearance: Alert, WD/WN, No Apparent Distress Eyes: Bilateral: Normal Appearance, EOMI Throat/Mouth: Normal Inspection, Normal Lips, Normal Teeth, Normal Gums, Normal Oropharynx, Normal Voice, No Airway Compromise Head: Atraumatic Neck: Normal Inspection Respiratory/Chest: No Respiratory Distress, Lungs Clear, Normal Breath Sounds, No Accessory Muscle Use, Chest Non-Tender Cardiovascular: Normal Peripheral Pulses, Regular Rate, Rhythm, No Edema GI/Abdominal Exam: Normal Bowel Sounds, Soft, No Distention, No Mass, Tender (generalized) (Female) Exam: Other ( heart tones were present at 156bpm) Extremities: Normal Inspection, Normal Capillary Refill Neurological: Alert, Oriented, Normal Cognition, No Motor/Sensory Deficits Psychiatric: Normal Affect, Normal Mood Skin Exam: Warm, Dry, Intact, Normal Color, No Rash Course - Vital Signs Last Recorded V/S: Last Vital Signs Temp 98.9 F 07/13/20 14:08 Pulse 90 07/13/20 14:08 Resp 20 07/13/20 14:08 BP 113/66 07/13/20 14:08 Pulse Ox 100 07/13/20 14:08 - Orders/Labs/Meds Orders: Active Orders 24 hr Category Date Time Status Peripheral IV Care [RC] . DIRECTED Care 07/13/20 14:19 Active CULTURE URINE [RM] Routine Lab 07/13/20 17:56 Ordered Sodium Chloride 0.9% [Saline Flush] Med 07/13/20 14:18 Active 10 ml FLUSH ASDIRECTED PRN Peripheral IV Insertion Adult [OM.PC] Routine Oth 07/13/20 14:18 Ordered Medication Orders Sodium Chloride (Saline Flush) 10 ml FLUSH ASDIRECTED PRN PRN Reason: Keep Vein Open Last Admin: 07/13/20 14:31 Dose: 10 ml Documented by: RICHARD Labs: Laboratory Tests 07/13/20 07/13/20 07/13/20 Range/Units 14:30 14:30 15:20 WBC 8.28 (3.98-10.04) K/mm3 RBC 4.17 (3.98-5.22) M/mm3 Hgb 11.6 (11.2-15.7) gm/dl Hct 36.1 (34.1-44.9) % MCV 86.6 (79.4-94.8) fl MCH 27.8 (25.6-32.2) pg MCHC 32.1 L (32.2-35.5) g/dl RDW Std Deviation 41.5 (36.4-46.3) fL Plt Count 193 (182-369) K/mm3 MPV 11.3 (9.4-12.3) fl Neut % (Auto) 84.7 H (34.0-71.1) % Lymph % (Auto) 7.0 L (19.3-51.7) % [place] % (Auto) 7.9 (4.7-12.5) % Eos % (Auto) 0.2 L (0.7-5.8) Baso % (Auto) 0.0 L (0.1-1.2) % Neut # (Auto) 7.01 H (1.56-6.13) K/mm3 Lymph # (Auto) 0.58 L (1.18-3.74) K/mm3 [place] # (Auto) 0.65 H (0.24-0.36) K/mm3 Eos # (Auto) 0.02 L (0.04-0.36) K/mm3 Baso # (Auto) 0.00 L (0.01-0.08) K/mm3 Manual Slide Review Normal smear Sodium 138 (136-145) mEq/L Potassium 3.7 (3.5-5.1) mEq/L Chloride 104 (98-107) mEq/L Carbon Dioxide 27 (21-32) mEq/L Anion Gap 10.7 (5-15) BUN 10 (7-18) mg/dL Creatinine 0.5 L (0.55-1.02) mg/dL Est Cr Clr Drug Dosing 162.95 mL/min Estimated GFR (MDRD) > 60 (>60) mL/min BUN/Creatinine Ratio 20.0 H (14-18) Glucose 99 (74-106) mg/dL Calcium 8.2 L (8.5-10.1) mg/dL Total Bilirubin 0.6 (0.2-1.0) mg/dL AST 14 L (15-37) U/L ALT 16 (14-59) U/L Alkaline Phosphatase 45 L (46-116) U/L C-Reactive Protein 1.5 H* (<1.0) mg/dL Total Protein 6.2 L (6.4-8.2) g/dl Albumin 2.7 L (3.4-5.0) g/dl Globulin 3.5 gm/dL Albumin/Globulin Ratio 0.8 L (1-2) Urine Color (Yellow) Urine Appearance (Clear) Urine pH (5.0-8.0) Ur Specific [place] (1.005-1.030) Urine Protein (Negative) Urine Glucose (UA) (Negative) Urine Ketones (Negative) Urine Occult Blood (Negative) Urine Nitrite (Negative) Urine Bilirubin (Negative) Urine Urobilinogen (0.2-1.0) Ur Leukocyte Esterase (Negative) Urine RBC (0-5) /hpf Urine WBC (0-5) /hpf Ur Squamous Epith Cells (0-5) /hpf Urine Bacteria (FEW) /hpf Urine Mucus (FEW) /hpf Influenza Type A RNA Negative (NEGATIVE) Influenza Type B RNA Negative (NEGATIVE) SARS-CoV-2 RNA (LIVE) Negative (NEGATIVE) 07/13/20 Range/Units 17:30 WBC (3.98-10.04) K/mm3 RBC (3.98-5.22) M/mm3 Hgb (11.2-15.7) gm/dl Hct (34.1-44.9) % MCV (79.4-94.8) fl MCH (25.6-32.2) pg MCHC (32.2-35.5) g/dl RDW Std Deviation (36.4-46.3) fL Plt Count (182-369) K/mm3 MPV (9.4-12.3) fl Neut % (Auto) (34.0-71.1) % Lymph % (Auto) (19.3-51.7) % [place] % (Auto) (4.7-12.5) % Eos % (Auto) (0.7-5.8) Baso % (Auto) (0.1-1.2) % Neut # (Auto) (1.56-6.13) K/mm3 Lymph # (Auto) (1.18-3.74) K/mm3 [place] # (Auto) (0.24-0.36) K/mm3 Eos # (Auto) (0.04-0.36) K/mm3 Baso # (Auto) (0.01-0.08) K/mm3 Manual Slide Review Sodium (136-145) mEq/L Potassium (3.5-5.1) mEq/L Chloride (98-107) mEq/L Carbon Dioxide (21-32) mEq/L Anion Gap (5-15) BUN (7-18) mg/dL Creatinine (0.55-1.02) mg/dL Est Cr Clr Drug Dosing mL/min Estimated GFR (MDRD) (>60) mL/min BUN/Creatinine Ratio (14-18) Glucose (74-106) mg/dL Calcium (8.5-10.1) mg/dL Total Bilirubin (0.2-1.0) mg/dL AST (15-37) U/L ALT (14-59) U/L Alkaline Phosphatase (46-116) U/L C-Reactive Protein (<1.0) mg/dL Total Protein (6.4-8.2) g/dl Albumin (3.4-5.0) g/dl Globulin gm/dL Albumin/Globulin Ratio (1-2) Urine Color Yellow (Yellow) Urine Appearance Clear (Clear) Urine pH 6.5 (5.0-8.0) Ur Specific [place] 1.020 (1.005-1.030) Urine Protein Negative (Negative) Urine Glucose (UA) Negative (Negative) Urine Ketones 3+ H (Negative) Urine Occult Blood Negative (Negative) Urine Nitrite Negative (Negative) Urine Bilirubin Negative (Negative) Urine Urobilinogen 4.0 H (0.2-1.0) Ur Leukocyte Esterase 1+ H (Negative) Urine RBC 0-5 (0-5) /hpf Urine WBC 0-5 (0-5) /hpf Ur Squamous Epith Cells 5-10 H (0-5) /hpf Urine Bacteria Few (FEW) /hpf Urine Mucus Few (FEW) /hpf Influenza Type A RNA (NEGATIVE) Influenza Type B RNA (NEGATIVE) SARS-CoV-2 RNA (LIVE) (NEGATIVE) Meds: Medications Generic Name Dose Route Start Last Admin Trade Name Freq PRN Reason Stop Dose Admin Sodium Chloride 10 ml 07/13/20 14:18 07/13/20 14:31 Saline Flush FLUSH 10 ml ASDIRECTED PRN Administration Keep Vein Open Discontinued Medications Generic Name Dose Route Start Last Admin Trade Name Freq PRN Reason Stop Dose Admin Acetaminophen 650 mg 07/13/20 17:34 07/13/20 17:44 Tylenol PO 07/13/20 17:35 650 mg NOW ONE Administration Hydromorphone HCl 0.5 mg 07/13/20 16:16 07/13/20 16:23 Dilaudid IVPUSH 07/13/20 16:17 0.5 mg ONETIME ONE Administration Sodium Chloride 1,000 mls @ 999 mls/hr 07/13/20 14:20 07/13/20 14:31 Normal Saline IV 07/13/20 15:20 999 mls/hr ONETIME ONE Administration Lactated Ringer's 1,000 mls @ 999 mls/hr 07/13/20 16:15 07/13/20 16:21 Ringers, Lactated IV 07/13/20 17:15 999 mls/hr .BOLUS ONE Administration Ondansetron HCl 4 mg 07/13/20 14:21 07/13/20 14:31 Zofran IVPUSH 07/13/20 14:22 4 mg ONETIME ONE Administration Ondansetron HCl 4 mg 07/13/20 17:43 Zofran Odt PO 07/13/20 17:44 ONETIME ONE - Re-Assessments/Exams Free Text/Narrative Re-Assessment/Exam: 07/13/20 14:36 Patient presents to the ED for evaluation of her nausea and vomiting in . We will get IV established, give her some IV fluids, IV Zofran, get some baseline labs along with a urinalysis and do a Covid/flu swab for further investigation. 07/13/20 16:16 Patient's laboratory evaluation is essentially unremarkable, Covid screen did come back negative, patient was that her nausea is under control however she still having a pretty good headache, has a little bit of throat pain and is slightly dizzy, we will give her another bag of fluids due to her status, and give her 0.5 mg IV Dilaudid for headache management. I do suspect her throat hurts due to the amount of vomiting she has been having the past 24 hours. 07/13/20 17:42 Patient has finished her second bag of fluids, but indicates she still having somewhat of a headache. We will go ahead and do 650 of Tylenol for management patient was able to give us a urine sample, will wait to see if this has any sign of infection and and hopefully discharge her home with a prescription for Zofran and general conservative recommendations. Departure - Departure Time of Disposition: 17:44 Disposition: Home, Self-Care 01 Condition: Good Clinical Impression: Gastroenteritis - Discharge Information *PRESCRIPTION DRUG MONITORING PROGRAM REVIEWED*: No *COPY OF PRESCRIPTION DRUG MONITORING REPORT IN PATIENT GABRIELLA: No Prescriptions: Ondansetron [Zofran ODT] 4 mg PO Q8H PRN #30 tab.dis PRN Reason: Nausea Instructions: Viral Gastroenteritis, Adult, [id number] Referrals: Nba Main MD [Primary Care Provider] - Forms: ED Department Discharge Additional Instructions: You have been evaluated in the ED for nausea/vomiting. It is likely that this is caused from a viral gastroenteritis. You have received IV fluid in the ED to help with the dehydration from the vomiting and diarrhea. Over the next 24-48 hours please try to limit diet to clear liquids and advance as tolerate to a bland diet to alleviate symptoms of nausea/vomiting. Please use the Zofran every 8 hours as needed for nausea. You may use 500-1000 mg of Tylenol every 6 hours as needed for further headache relief. Do not exceed 4000 mg Tylenol in a 24-hour time span. Please return to the ED if your symptoms should change or worsen. Sepsis Event Note (ED) - Evaluation Sepsis Screening Result: No Definite Risk - Focused Exam Vital Signs: Vital Signs Temp Pulse Resp BP Pulse Ox 07/13/20 14:08 98.9 F 90 20 113/66 100 - My Orders Last 24 Hours: My Active Orders 07/13/20 14:18 Sodium Chloride 0.9% [Saline Flush] 10 ml FLUSH ASDIRECTED PRN Peripheral IV Insertion Adult [OM.PC] Routine 07/13/20 14:19 Peripheral IV Care [RC] . DIRECTED 07/13/20 17:56 CULTURE URINE [RM] Routine - Assessment/Plan Last 24 Hours: My Active Orders 07/13/20 14:18 Sodium Chloride 0.9% [Saline Flush] 10 ml FLUSH ASDIRECTED PRN Peripheral IV Insertion Adult [OM.PC] Routine 07/13/20 14:19 Peripheral IV Care [RC] . DIRECTED 07/13/20 17:56 CULTURE URINE [RM] Routine
[2020-07-13 16:03] LABS: CORONAVIRUS COVID-19 NAA NEGATIVE (NEGATIVE)
[2020-07-13] MEDS ORDERED: Lactated Ringers 1,000 ML IV ONE (16:15)
[2020-07-13] MEDS ORDERED: HYDROmorphone 0.5 MG/0.5 ML Syringe IVPUSH ONE (16:16)
[2020-07-13] MEDS ORDERED: Acetaminophen 325 MG Tab PO ONE (17:34)
[2020-07-13] MEDS ORDERED: Ondansetron 4 MG Tab.DIS PO ONE (17:43)
== END 2020-07-13 18:15 | disposition home or self-care (01) ==
LOC: JD.ED 13:37
DX: O99.612 Diseases of the digestive system complicating pregnancy, second trimester (principal); K52.9 Noninfective gastroenteritis and colitis, unspecified; Z91.030 Bee allergy status; Z79.899 Other long term (current) drug therapy; Z20.822 Contact with and (suspected) exposure to COVID-19; Z3A.19 19 weeks gestation of pregnancy
CPT/HCPCS: 0240U; 36415; 80053; 81001; 85025; 86140; 87086; 96374; 96375; 99284; A9270; J1170; J2405; J7030; J7120

== ENCOUNTER 2020-11-18 06:53 | Inpatient (IN) | payer MEDICAID ==
[~2020-11-18 06:53] MED LIST: Bupivacaine 0.25% 10 ML SDV ONE; ePHEDrine 50 MG/ML SDV ONE
[2020-11-18] MEDS ORDERED: Calcium Gluconate 10% 1 GM/10 ML SDV IV PRN (08:05)
[2020-11-18] MEDS ORDERED: Nalbuphine 10 MG/1 ML Vial IVPUSH PRN (08:13)
[2020-11-18] MEDS ORDERED: Sodium Chloride 0.9% 10 ML Syringe FLUSH PRN (08:13)
--- NOTE | 2020-11-18 08:14 | PCM.LDHP ---
L&D History of Present Illness - General Date of Service: 11/18/20 Admit Problem/Dx: Admission Diagnosis/Problem Admission Diagnosis/Problem - History of Present Illness Introduction:: 34 year old at 37 weeks presents for induction of labor for gestational hypertension. PNC with Dr. Fabian complicated by history of bipolar disorder not on medication, history of drug use sober for 9 years and gestational hypertension O+ , rubella immune, gbs negative, hep c negative. 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 Psychiatric History: Reports: Anxiety, Bipolar, Depression - Past Surgical History Musculoskeletal Surgical History: Reports: Other (See Below) Other Musculoskeletal Surgeries/Procedures:: ankle surgery, wrist surgery, elbow surgery, hip surgery Social & Family History - Family History Family Medical History: No Pertinent Family History - Caffeine Use Caffeine Use: Reports: None H&P Review of Systems - Review of Systems: Review Of Systems: See Below General: Reports: No Symptoms HEENT: Reports: No Symptoms Pulmonary: Reports: No Symptoms Cardiovascular: Reports: No Symptoms Gastrointestinal: Reports: No Symptoms Genitourinary: Reports: No Symptoms Musculoskeletal: Reports: No Symptoms Skin: Reports: No Symptoms Psychiatric: Reports: No Symptoms Neurological: Reports: No Symptoms Hematologic/Lymphatic: Reports: No Symptoms Immunologic: Reports: No Symptoms L&D Exam - Exam Exam: See Below - OB Specific Contraction Intensity: Moderate Movement: Active Heart Tones: Present Heart Rate (FHR) Variability: Moderate (6-25 bmp) Presentation: Vertex - Calzada Score Calzada Score Cervix Position: Midposition Calzada Score Consistency: Soft Calzada Score Effacement: >80% Calzada Score Dilation: 3-4 cm - Exam General: Alert, Oriented HEENT: PERRLA, Conjunctiva Clear, EACs Clear, EOMI, Hearing Intact, Mucosa Moist & [place], Nares Patent, Normal Nasal Septum, Posterior Pharynx Clear, TMs Clear Neck: Supple, Trachea Midline Lungs: Clear to Auscultation, Normal Respiratory Effort Cardiovascular: Regular Rate, Regular Rhythm GI/Abdominal Exam: Normal Bowel Sounds, Soft, Non-Tender, No Organomegaly, No Distention, No Abnormal Bruit, No Mass, Pelvis Stable Genitourinary: Normal external exam, Normal bimanual exam, Normal speculum exam Back Exam: Normal Inspection, Full Range of Motion Extremities: Normal Inspection, Normal Range of Motion, Non-Tender, No Pedal Edema, Normal Capillary Refill Skin: Warm, Dry, Intact Neurological: Cranial Nerves Intact, Reflexes Equal Bilateral Psychiatric: Alert, Normal Affect, Normal Mood Problem List Initiated/Reviewed/Updated: Yes Orders Last 24hrs: Active Orders 24 hr Category Date Time Status Bedrest [RC] ASDIRECTED Care 11/18/20 08:06 Ordered Monitoring [RC] CONTINUOUS Care 11/18/20 08:06 Ordered Notify Provider Status Change [RC] ASDIRECTED Care 11/18/20 08:05 Ordered Notify Provider [RC] ASDIRECTED Care 11/18/20 08:06 Ordered Oxygen Therapy [RC] PRN Care 11/18/20 08:06 Ordered Vital Signs [RC] ASDIRECTED Care 11/18/20 08:06 Ordered ALANINE AMINOTRANSFERASE,ALT [CHEM] Stat Lab 11/18/20 08:07 Ordered ASPARTATE AMNIOTRANSFERASE,AST [CHEM] Stat Lab 11/18/20 08:07 Ordered BLOOD UREA NITROGEN,BUN [CHEM] Stat Lab 11/18/20 08:07 Ordered CBC WITH AUTO DIFF [HEME] Stat Lab 11/18/20 08:05 Ordered COMPREHENSIVE METABOLIC PN,CMP [CHEM] AM Lab 11/19/20 05:11 Ordered CREATININE W/GFR [CHEM] Stat Lab 11/18/20 08:07 Ordered DRUG SCREEN, URINE [URCHEM] Stat Lab 11/18/20 08:08 Ordered LACTATE DEHYDROGENASE,LDH [CHEM] Stat Lab 11/18/20 08:07 Ordered PROTEIN/CREATININE RATIO,URINE [URCHEM] Stat Lab 11/18/20 08:07 Ordered URIC ACID [CHEM] Stat Lab 11/18/20 08:07 Ordered Calcium Gluconate Med 11/18/20 08:05 Ordered 1 gm IV ASDIRECTED PRN Blood Pressure [OM.PC] ASDIRECTED Oth 11/18/20 08:15 Ordered Deep Tendon Reflexes [WOMSER] ASDIRECTED Ot 11/18/20 08:15 Ordered PIH Panel [OM.PC] Stat Ot 11/18/20 08:05 Ordered Assessment/Plan Comment:: 37 week induction for hypertension. Maternal wellbeing - labs ordered and pending, drugs screens have been negative and now ordered - plans epidural wellbeing - reassuring FHT
[2020-11-18] MEDS ORDERED: Oxytocin/Lactated Ringers 10 UNIT/1,000 ML BAG IV SCH ×2 (08:15)
[2020-11-18] MEDS: Lactated Ringers 1,000 ML IV SCH ×3 (08:53→10:37)
[2020-11-18] MEDS ORDERED: ePHEDrine 50 MG/ML SDV IVPUSH PRN (09:36)
[2020-11-18] MEDS ORDERED: diphenhydrAMINE 50 MG/ML SDV IVPUSH PRN (09:36)
[2020-11-18] MEDS ORDERED: fentaNYL 100 MCG/2 ML SDV EPIDUR PRN (09:36)
[2020-11-18] MEDS ORDERED: Bupivacaine/fentaNYL/NS 100 ML Bag EPIDUR PRN (09:36)
--- NOTE | 2020-11-18 10:10 | PCM.PREANE ---
Preanesthetic Assessment - Procedure Proposed Procedure: Epidural - Anesthesia/Transfusion/Family Hx Anesthesia History: Prior Anesthesia Without Reaction Family History of Anesthesia Reaction: No Transfusion History: No Prior Transfusion(s) - Review of Systems General: Fatigue Pulmonary: No Symptoms Cardiovascular: No Symptoms Gastrointestinal: Abdominal Pain (labor) Neurological: No Symptoms Other: Reports: None - Physical Assessment Height: 1.74 m Weight: 90.265 kg ASA Class: 2 Mental Status: Alert & Oriented x3 Airway Class: Mallampati = 1 Dentition: Reports: Normal Dentition Thyro-Mental Finger Breadths: 3 Mouth Opening Finger Breadths: 3 ROM/Head Extension: Full Lungs: Clear to Auscultation, Normal Respiratory Effort Cardiovascular: Regular Rate, Regular Rhythm - Lab Values: Laboratory Last Values WBC 6.54 K/mm3 (3.98-10.04) 11/18/20 08:20 RBC 4.36 M/mm3 (3.98-5.22) 11/18/20 08:20 Hgb 10.9 gm/dl (11.2-15.7) L 11/18/20 08:20 Hct 34.5 % (34.1-44.9) 11/18/20 08:20 MCV 79.1 fl (79.4-94.8) L 11/18/20 08:20 MCH 25.0 pg (25.6-32.2) L 11/18/20 08:20 MCHC 31.6 g/dl (32.2-35.5) L 11/18/20 08:20 RDW Std Deviation 39.0 fL (36.4-46.3) 11/18/20 08:20 Plt Count 237 K/mm3 (182-369) 11/18/20 08:20 MPV 11.5 fl (9.4-12.3) 11/18/20 08:20 Neut % (Auto) 68.2 % (34.0-71.1) 11/18/20 08:20 Lymph % (Auto) 18.0 % (19.3-51.7) L 11/18/20 08:20 [place] % (Auto) 12.2 % (4.7-12.5) 11/18/20 08:20 Eos % (Auto) 1.4 (0.7-5.8) 11/18/20 08:20 Baso % (Auto) 0.2 % (0.1-1.2) 11/18/20 08:20 Neut # (Auto) 4.46 K/mm3 (1.56-6.13) 11/18/20 08:20 Lymph # (Auto) 1.18 K/mm3 (1.18-3.74) 11/18/20 08:20 [place] # (Auto) 0.80 K/mm3 (0.24-0.36) H 11/18/20 08:20 Eos # (Auto) 0.09 K/mm3 (0.04-0.36) 11/18/20 08:20 Baso # (Auto) 0.01 K/mm3 (0.01-0.08) 11/18/20 08:20 BUN 4 mg/dL (7-18) L 11/18/20 08:20 Creatinine 0.7 mg/dL (0.55-1.02) 11/18/20 08:20 Est Cr Clr Drug Dosing 117.39 mL/min 11/18/20 08:20 Estimated GFR (MDRD) > 60 mL/min (>60) 11/18/20 08:20 Uric Acid 4.7 mg/dL (2.6-6.0) 11/18/20 08:20 AST 15 U/L (15-37) 11/18/20 08:20 ALT 11 U/L (14-59) L 11/18/20 08:20 Lactate Dehydrogenase 139 U/L (81-234) 11/18/20 08:20 Ur Random Creatinine 44.9 mg/dL (30.0-125.0) 11/18/20 07:50 U Random Total Protein 17.3 mg/dL (0.0-11.8) H 11/18/20 07:50 Protein/Creatinin Ratio 385.3 mg/g (0-149) H 11/18/20 07:50 Urine Opiates Screen Negative (NLMVCZ=397) 11/18/20 07:50 Ur Buprenorphine Scrn Negative (CUTOFF=10) 11/18/20 07:50 Ur Oxycodone Screen Negative (DGZ2FU=809) 11/18/20 07:50 Urine Methadone Screen Negative (YFPSCV=271) 11/18/20 07:50 Ur Propoxyphene Screen Negative (LBHMBZ=879) 11/18/20 07:50 Ur Barbiturates Screen Negative (CVEKOX=602) 11/18/20 07:50 Ur Tricyclics Screen Negative (RVPWVA=033) 11/18/20 07:50 Ur Phencyclidine Scrn Negative (CUTOFF=25) 11/18/20 07:50 Ur Amphetamine Screen Negative (BJOJLQ=376) 11/18/20 07:50 U Methamphetamines Scrn Negative (RXOCAF=265) 11/18/20 07:50 U Benzodiazepines Scrn Negative (WDJCJA=485) 11/18/20 07:50 U Cocaine Metab Screen Negative (RAAXUD=641) 11/18/20 07:50 U Marijuana (THC) Screen Negative (CUTOFF=50) 11/18/20 07:50 SARS-CoV-2 RNA (LIVE) Negative (NEGATIVE) 11/18/20 07:21 - Allergies Allergies/Adverse Reactions: Allergies Allergy/AdvReac Type Severity Reaction Status Date / Time bee pollen Allergy Difficulty Verified 10/30/20 21:31 Breathing - Anesthesia Plan Pre-Op Medication Ordered: None - Acknowledgements Anesthesia Type Planned: Epidural Pt an Appropriate Candidate for the Planned Anesthesia: Yes Alternatives and Risks of Anesthesia Discussed w Pt/Guardian: Yes Pt/Guardian Understands and Agrees with Anesthesia Plan: Yes PreAnesthesia Questionnaire - Past Health History Medical/Surgical History: Denies Medical/Surgical History Gastrointestinal History: Reports: GERD 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: , 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 Psychiatric History: Reports: Anxiety, Bipolar, Depression - Past Surgical History Musculoskeletal Surgical History: Reports: Other (See Below) Other Musculoskeletal Surgeries/Procedures:: ankle surgery, wrist surgery, elbow surgery, hip surgery - HOME MEDS Home Medications: Home Meds Pnv No.103/Folic/Om3s/Fish Oil [ Gummies] 2 tab PO DAILY 07/13/20 [History] Acetaminophen [Tylenol] 650 mg PO Q4H PRN 10/30/20 [History] - CURRENT (IN HOUSE) MEDS Current Meds: Current Medications Calcium Gluconate (Calcium Gluconate 10% 1 Gm/10 Ml Sdv) 1 gm IV ASDIRECTED PRN PRN Reason: respiratory distress Diphenhydramine HCl (Diphenhydramine 50 Mg/Ml Sdv) 25 mg IVPUSH Q6H PRN PRN Reason: pruritis Ephedrine Sulfate (Ephedrine 50 Mg/Ml Sdv) 5 mg IVPUSH ASDIRECTED PRN PRN Reason: Hypotension Fentanyl (Fentanyl 100 Mcg/2 Ml Sdv) 100 mcg EPIDUR Q3H PRN PRN Reason: Pain Last Admin: 11/18/20 09:45 Dose: 100 mcg Documented by: Fentanyl/Bupivacaine HCl (Bupivacaine/Fentanyl/Ns 100 Ml Bag) 100 ml EPIDUR ASDIRECTED PRN PRN Reason: Pain Last Admin: 11/18/20 09:45 Dose: 100 ml Documented by: Lactated Ringer's (Ringers, Lactated) 1,000 mls @ 100 mls/hr IV ASDIRECTED JESSICA Last Admin: 11/18/20 09:58 Dose: 100 mls/hr Documented by: Oxytocin/Lactated Ringer's (Pitocin In Lr 10 Units/1,000 Ml) 10 unit in 1,000 mls @ 12 mls/hr IV TITRATE JESSICA; Protocol Oxytocin/Lactated Ringer's (Pitocin In Lr 10 Units/1,000 Ml) 10 unit in 1,000 mls @ 100 mls/hr IV .CONTINUOUS JESSICA Nalbuphine HCl (Nalbuphine 10 Mg/1 Ml Vial) 10 mg IVPUSH Q2H PRN PRN Reason: Pain Sodium Chloride (Sodium Chloride 0.9% 10 Ml Syringe) 10 ml FLUSH ASDIRECTED PRN PRN Reason: Keep Vein Open
[2020-11-18] MEDS ORDERED: Ondansetron 4 MG/2 ML SDV IVPUSH PRN (10:21)
[2020-11-18] MEDS ORDERED: Ondansetron 4 MG/2 ML SDV ONE (10:23)
--- NOTE | 2020-11-18 15:15 | PCM.SN.2 ---
- Free Text/Narrative Note: Stage I - Patient presented for induction of labor for gestational hypertension. AROM. Pitocin. Progressed to complete with overall reassuring heart tones. Stage II - of viable female, weight 3160g, 8/9 APGARS at 1452. Head delivered in controlled manner over 2nd degree midline laceration. OP. Body and shoulders atraumatically. To maternal abdomen. Cord clamped and cut at 3 minutes of life. Cord blood collected. Stage III - of intact placenta. 3vc. 2nd degree midline laceration repaired with 3-0 vicryl.
[2020-11-18] MEDS ORDERED: Acetaminophen 325 MG Tab PO PRN (15:32)
[2020-11-18] MEDS ORDERED: Docusate Sodium 100 MG Cap PO PRN (15:32)
[2020-11-18] MEDS ORDERED: Witch Hazel Medicated Pads 40/Jar TOP PRN (15:32)
[2020-11-18] MEDS ORDERED: Benzocaine/Menthol 20%-0.5% Spray 56 GM Canister TOP PRN (15:32)
[2020-11-18] MEDS: Ibuprofen 600 MG Tab PO PRN (15:44)
[2020-11-18] MEDS ORDERED: hydrOXYzine HCl 50 MG Tab PO PRN (15:49)
[2020-11-19] MEDS: Ibuprofen 600 MG Tab PO PRN (03:47)
--- NOTE | 2020-11-19 07:42 | PCM48HPAN ---
Post Anesthesia Note - EVALUATION WITHIN 48HRS OF ANESTHETIC Vital Signs in Normal Range: Yes Patient Participated in Evaluation: Yes Respiratory Function Stable: Yes Airway Patent: Yes Cardiovascular Function Stable: Yes Hydration Status Stable: Yes Pain Control Satisfactory: Yes Nausea and Vomiting Control Satisfactory: Yes Mental Status Recovered: Yes Vital Signs: Last Vital Signs Temp 36.9 C 11/19/20 03:22 Pulse 72 11/19/20 03:22 Resp 14 11/19/20 03:22 BP 124/92 H 11/19/20 03:22 Pulse Ox 94 L 11/19/20 03:22
--- NOTE | 2020-11-19 14:43 | PCM.SN.2 ---
- Free Text/Narrative Note: Post Progress Note PPD #1 Subjective: Doing well overall. Ambulating without difficulty. Lochia minimal. Voiding without difficulty. Tolerating regular diet without nausea or vomiting. Pain controlled with oral medications. Breast-feeding with minimal difficulty. Objective: Vitals: Vital Signs - 24 hr 11/18/20 11/18/20 11/18/20 14:45 15:01 16:03 Temperature Pulse, 148 H 90 89 Peripheral Respiratory Rate Blood Pressure 189/172 H 143/50 H 134/76 O2 Sat by Pulse Oximetry 11/18/20 11/19/20 11/19/20 20:45 03:22 08:54 Temperature 36.4 C 36.9 C 36.7 C Pulse, 81 72 77 Peripheral Respiratory 16 14 16 Rate Blood Pressure 139/73 124/92 H 132/75 O2 Sat by Pulse 97 94 L 98 Oximetry Physical Exam General: Alert and oriented, no acute distress Lungs: Clear to auscultation bilaterally Heart: Regular rate and rhythm Abdomen: Soft, minimal appropriate tenderness, non-distended, fundus midline, nontender, and at the umbilicus Extremities: Trace edema in bilateral lower extremities to mid shins, no calf tenderness bilaterally Laboratory Results - last 24 hr 11/18/20 Range/Units 08:20 RPR Non-reactive (NONREACTIVE) ASSESSMENT: 35-year-old female G 12 [id number] s/p normal vaginal delivery PPD #1, complicated by preeclampsia without severe features, history of bipolar disorder and history of drug use PLAN: Doing well Breast-feeding with minimal difficulty. Assist as needed Lochia minimal. Continue to monitor for appropriate lochia. Continue routine care Anticipate discharge home today Salu Fabian MD 2:40 PM 11/19/2020
--- NOTE | 2020-11-19 14:52 | PCM.DCSUM1 ---
Discharge Summary - Hospital Course Free Text/Narrative:: Stage I - Patient presented for induction of labor for gestational hypertension. AROM. Pitocin. Progressed to complete with overall reassuring heart tones. Stage II - of viable female, weight 3160g, 8/9 APGARS at 1452. Head delivered in controlled manner over 2nd degree midline laceration. OP. Body and shoulders atraumatically. To maternal abdomen. Cord clamped and cut at 3 minutes of life. Cord blood collected. Stage III - of intact placenta. 3vc. 2nd degree midline laceration repaired with 3-0 vicryl. Diagnosis: Stroke: No - Discharge Data Discharge Date: 11/19/20 Discharge Disposition: Home, Self-Care 01 Condition: Good - Referral to Home Health Primary Care Physician: Ny Aviles NP - Discharge Diagnosis/Problem(s) (1) 37 weeks gestation of SNOMED Code(s): 50234412 ICD Code: Z3A.37 - 37 WEEKS GESTATION OF Status: Acute Current Visit: Yes (2) Preeclampsia SNOMED Code(s): 120063210 ICD Code: O14.90 - UNSPECIFIED PRE-ECLAMPSIA, UNSPECIFIED TRIMESTER Status: Acute Current Visit: Yes (3) Vaginal delivery SNOMED Code(s): 025919794 ICD Code: O80 - ENCOUNTER FOR FULL-TERM UNCOMPLICATED DELIVERY Status: Acute Current Visit: Yes - Patient Summary/Data Complications: None Consults: None Hospital Course: Miranda Oseguera was admitted for induction of labor in the setting of gestational hypertension. On admission her cervix was dilated to 3-4 cm. She was GBS negative.initial lab work on presentation showed a urine protein/creatinine ratio of 0.385 which is consistent with preeclampsia without severe features. She was given pitocin for augmentation. She had artificial rupture of membranes with clear fluid. She was given an epidural for anesthesia. She progressed to complete and began pushing. On 11/18/2020 she had a normal vaginal delivery of a live female at 14:52. Apgars of 8 and 9. Weight of 3160 g (6 pounds 15.5 ounces). Her course was uneventful. Her pain was well controlled and she had minimal lochia. She was ambulating, tolerating a regular diet and voiding normally. She was breast-feeding with minimal difficulty. She was afebrile and her hematocrit was 34.5 on admission. She desired to be discharged home in the afternoon of PPD #1. Her blood type is O+. She did not have any severe range blood pressures but did have some occasional mild range blood pressures. No evidence of severe features of preeclampsia. - Patient Instructions Diet: Regular Diet as Tolerated Activity: Apply Ice, As Tolerated Activity, Other: Nothing in the vagina for 6 weeks Driving: May Drive Today Showering/Bathing: May Shower Notify Provider of: Fever, Increased Pain, Swelling and Redness, Drainage, Nausea and/or Vomiting Other/Special Instructions: Please contact your physician's office if you have heavy vaginal bleeding enough to soak a pad in less than an hour for several hours. Monitor for any signs of an infection in the breasts with severe pain or redness of the breast. Please contact your physician's office if you have a severe headache that does not improve with Tylenol or ibuprofen, spots in your vision or severe pain in your upper abdomen. - Discharge Plan *PRESCRIPTION DRUG MONITORING PROGRAM REVIEWED*: Not Applicable *COPY OF PRESCRIPTION DRUG MONITORING REPORT IN PATIENT GABRIELLA: Not Applicable Home Medications: Home Meds Pnv No.103/Folic/Om3s/Fish Oil [ Gummies] 2 tab PO DAILY 07/13/20 [History] Acetaminophen [Tylenol] 650 mg PO Q6H PRN tablet 11/19/20 [Rx] Benzocaine/Menthol [Dermoplast Pain Relief Gould] 1 spray TOP ASDIRECTED PRN canister 11/19/20 [Rx] Docusate Sodium [Colace] 100 mg PO BID PRN cap 11/19/20 [Rx] Ibuprofen [Motrin] 600 mg PO Q6H PRN tablet 11/19/20 [Rx] witch Estelle [Tucks] 1 pad TOP ASDIRECTED PRN pad 11/19/20 [Rx] Patient Handouts: Care of a Perineal Tear, Care After Vaginal Delivery Referrals: Saul Fabian MD [Physician] - (Follow-up within 1 week for routine visit and blood pressure check.) - Discharge Summary/Plan Comment DC Time >30 min.: No - Patient Data Vitals - Most Recent: Last Vital Signs Temp 36.7 C 11/19/20 08:54 Pulse 77 11/19/20 08:54 Resp 16 11/19/20 08:54 BP 132/75 11/19/20 08:54 Pulse Ox 98 11/19/20 08:54 Weight - Most Recent: 90.265 kg I&O - Last 24 hours: Intake & Output 11/18/20 11/19/20 11/19/20 22:59 06:59 14:59 Intake Total 4320 560 Output Total 246 Balance 4074 560 Lab Results - Last 24 hrs: Laboratory Results - last 24 hr 11/18/20 Range/Units 08:20 RPR Non-reactive (NONREACTIVE) Med Orders - Current: Current Medications Acetaminophen (Acetaminophen 325 Mg Tab) 650 mg PO Q4H PRN PRN Reason: mild pain or fever Last Admin: 11/18/20 20:52 Dose: 650 mg Documented by: Benzocaine/Menthol (Benzocaine/Menthol 20%-0.5% Gould 56 Gm Canister) 0 gm TOP ASDIRECTED PRN PRN Reason: Perineal Comfort Measure Last Admin: 11/18/20 17:24 Dose: 1 applic Documented by: Docusate Sodium (Docusate Sodium 100 Mg Cap) 100 mg PO BID PRN PRN Reason: Constipation Last Admin: 11/19/20 03:47 Dose: 100 mg Documented by: Hydroxyzine HCl (Hydroxyzine Hcl 50 Mg Tab) 50 mg PO Q6H PRN PRN Reason: Anxiety Last Admin: 11/18/20 16:15 Dose: 50 mg Documented by: Ibuprofen (Ibuprofen 600 Mg Tab) 600 mg PO Q6H PRN PRN Reason: Mild pain or fever Last Admin: 11/19/20 03:47 Dose: 600 mg Documented by: Christofer Black (Christofer Black Medicated Pads 40/Jar) 1 pad TOP ASDIRECTED PRN PRN Reason: Perineal Comfort Measure Last Admin: 11/18/20 17:23 Dose: 1 applic Documented by: Discontinued Medications Bupivacaine HCl (Bupivacaine 0.25% 10 Ml Sdv) 10 ml .ROUTE .STK-MED ONE Stop: 11/18/20 00:01 Calcium Gluconate (Calcium Gluconate 10% 1 Gm/10 Ml Sdv) 1 gm IV ASDIRECTED PRN PRN Reason: respiratory distress Diphenhydramine HCl (Diphenhydramine 50 Mg/Ml Sdv) 25 mg IVPUSH Q6H PRN PRN Reason: pruritis Ephedrine Sulfate (Ephedrine 50 Mg/Ml Sdv) 5 mg IVPUSH ASDIRECTED PRN PRN Reason: Hypotension Ephedrine Sulfate (Ephedrine 50 Mg/Ml Sdv) 50 mg .ROUTE .[employer]-MED ONE Stop: 11/18/20 00:01 Fentanyl (Fentanyl 100 Mcg/2 Ml Sdv) 100 mcg EPIDUR Q3H PRN PRN Reason: Pain Last Admin: 11/18/20 09:45 Dose: 100 mcg Documented by: Fentanyl/Bupivacaine HCl (Bupivacaine/Fentanyl/Ns 100 Ml Bag) 100 ml EPIDUR ASDIRECTED PRN PRN Reason: Pain Last Admin: 11/18/20 09:45 Dose: 100 ml Documented by: Lactated Ringer's (Ringers, Lactated) 1,000 mls @ 100 mls/hr IV ASDIRECTED JESSICA Last Admin: 11/18/20 10:37 Dose: 100 mls/hr Documented by: Oxytocin/Lactated Ringer's (Pitocin In Lr 10 Units/1,000 Ml) 10 unit in 1,000 mls @ 12 mls/hr IV TITRATE JESSICA; Protocol Last Titration: 11/18/20 11:40 Dose: 4 munits/min, 24 mls/hr Documented by: Oxytocin/Lactated Ringer's (Pitocin In Lr 10 Units/1,000 Ml) 10 unit in 1,000 mls @ 100 mls/hr IV .CONTINUOUS JESSICA Nalbuphine HCl (Nalbuphine 10 Mg/1 Ml Vial) 10 mg IVPUSH Q2H PRN PRN Reason: Pain Ondansetron HCl (Ondansetron 4 Mg/2 Ml Sdv) 4 mg IVPUSH Q8H PRN PRN Reason: Nausea/Vomiting Last Admin: 11/18/20 10:25 Dose: 4 mg Documented by: Ondansetron HCl (Ondansetron 4 Mg/2 Ml Sdv) Confirm Administered Dose 4 mg .ROUTE .[employer] ONE Stop: 11/18/20 10:24 Last Admin: 11/18/20 11:26 Dose: Not Given Documented by: Sodium Chloride (Sodium Chloride 0.9% 10 Ml Syringe) 10 ml FLUSH ASDIRECTED PRN PRN Reason: Keep Vein Open
== END 2020-11-19 16:07 | disposition home or self-care (01) | DRG 807 ==
LOC: JD.OB 06:53 → OBSVTOIN 14:52 → JD.OB 14:52
PROVIDERS: ADMIT Obstetrics & Gynecology; ATTEND Obstetrics & Gynecology
PROC: 10E0XZZ Delivery of Products of Conception, External Approach (ICD-10-PCS; principal; 2020-11-18)
PROC: 0KQM0ZZ Repair Perineum Muscle, Open Approach (ICD-10-PCS; 2020-11-18)
PROC: 10907ZC Drainage of Amniotic Fluid, Therapeutic from Products of Conception, Via Natural or Artificial Opening (ICD-10-PCS; 2020-11-18)
PROC: 3E033VJ Introduction of Other Hormone into Peripheral Vein, Percutaneous Approach (ICD-10-PCS; 2020-11-18)
PROC: 3E0R3BZ Introduction of Anesthetic Agent into Spinal Canal, Percutaneous Approach (ICD-10-PCS; 2020-11-18)
DX: O14.04 Mild to moderate pre-eclampsia, complicating childbirth (principal); Z37.0 Single live birth; O13.4 Gestational [pregnancy-induced] hypertension without significant proteinuria, complicating childbirth; Z3A.37 37 weeks gestation of pregnancy; O70.1 Second degree perineal laceration during delivery; Z91.030 Bee allergy status; Z20.822 Contact with and (suspected) exposure to COVID-19
CPT/HCPCS: 36415; 51702; 59025; 59409; 80306; 82565; 82570; 83615; 84156; 84450; 84460; 84520; 84550; 85025; 86592; A9270-GY; J2405; J2590; J3010; J3490; J7120; U0002

== ENCOUNTER 2022-04-02 21:02 | Inpatient (IN) | payer MEDICAID ==
[2022-04-02] MEDS ORDERED: Ondansetron 4 MG Tab.DIS PO ONE (22:14)
[2022-04-03] MEDS ORDERED: Lidocaine 1.5% with EPINEPHrine 1:200,000 5 ML Amp ONE
[2022-04-03] MEDS ORDERED: Nalbuphine HCl 10 MG/ 1ML Amp IVPUSH PRN
[2022-04-03] MEDS ORDERED: ePHEDrine 50 MG/ML SDV IVPUSH PRN (00:12)
[2022-04-03] MEDS ORDERED: diphenhydrAMINE 50 MG/ML SDV IVPUSH PRN (00:12)
[2022-04-03] MEDS: Lactated Ringers 1,000 ML IV SCH ×4 (00:16→12:07)
[2022-04-03] MEDS: fentaNYL 100 MCG/2 ML SDV EPIDUR PRN ×2 (01:07→11:34)
[2022-04-03] MEDS: Bupivacaine/fentaNYL/NS 100 ML Bag EPIDUR PRN ×2 (01:08→08:44)
[2022-04-03] MEDS ORDERED: Ondansetron 4 MG/2 ML SDV IVPUSH PRN (02:30)
[2022-04-03] MEDS ORDERED: Sodium Chloride 0.9% 10 ML Syringe FLUSH SCH (09:00)
[2022-04-03] MEDS ORDERED: Dexmedetomidine 200 MCG/2 ML SDV ONE (11:30)
[2022-04-03] MEDS ORDERED: Benzocaine/Menthol 20%-0.5% Spray 78 GM Cannister TOP PRN (13:59)
[2022-04-03] MEDS ORDERED: Docusate Sodium 100 MG Cap PO PRN (13:59)
[2022-04-03] MEDS ORDERED: Oxytocin/Lactated Ringers 10 UNIT/1,000 ML BAG IV SCH ×2 (13:59)
[2022-04-03] MEDS ORDERED: Hydrocortisone Acetate 25 MG Supp RECTAL PRN (13:59)
[2022-04-03] MEDS ORDERED: Magnesium Hydroxide 400 MG/5 ML Susp 30 ML Cup PO PRN (13:59)
[2022-04-03] MEDS ORDERED: Witch Hazel Medicated Pads 40/Jar TOP PRN (13:59)
[2022-04-03] MEDS: Ibuprofen 600 MG Tab PO PRN (14:11)
[2022-04-03] MEDS: Acetaminophen 325 MG Tab PO PRN (19:38)
[2022-04-04] MEDS: Ibuprofen 600 MG Tab PO PRN ×2 (00:06→07:23)
[2022-04-04] MEDS: Acetaminophen 325 MG Tab PO PRN (02:41)
[2022-04-04] MEDS ORDERED: Ferrous Sulfate 324 MG Tab.EC PO SCH (07:00)
[2022-04-04] MEDS: Prenatal Multivitamin with Calcium/Folic Acid/Iron Tab PO SCH ×2 (07:27→10:44)
[2022-04-04] MEDS ORDERED: Sertraline 50 MG Tab PO SCH (10:15)
== END 2022-04-04 13:51 | disposition home or self-care (01) | DRG 807 ==
LOC: JD.OBCHECK 21:02 → JD.OB 21:06 → JD.OBCHECK 04-03 00:01 → OBSVTOIN 04-03 13:44 → JD.OB 04-03 13:59
PROVIDERS: ADMIT Obstetrics & Gynecology; ATTEND Obstetrics & Gynecology
PROC: 10E0XZZ Delivery of Products of Conception, External Approach (ICD-10-PCS; principal; 2022-04-03)
PROC: 0HQ9XZZ Repair Perineum Skin, External Approach (ICD-10-PCS; 2022-04-03)
PROC: 10907ZC Drainage of Amniotic Fluid, Therapeutic from Products of Conception, Via Natural or Artificial Opening (ICD-10-PCS; 2022-04-03)
DX: O99.62 Diseases of the digestive system complicating childbirth (principal); Z37.0 Single live birth; K21.9 Gastro-esophageal reflux disease without esophagitis; Z91.030 Bee allergy status; O70.0 First degree perineal laceration during delivery
CPT/HCPCS: 01967; 36415; 51702; 59025; 59409; 84112; 85025; 86592; A9270-GY; J2405; J2590; J3010; J7120

== ENCOUNTER 2024-07-15 20:09 | Emergency (ER) | payer BC, OTHER ==
[2024-07-15 20:54] LABS: BASOPHILS PERCENT AUTO 0.4 % (0.0-1.0); EOSINOPHILS PERCENT AUTO 0.4 % (0.0-6.0); HEMATOCRIT 38.9 % (37.0-47.0); HEMOGLOBIN 12.8 gm/dl (12.0-16.0); IMMATURE GRAN ABSOLUTE AUTO 0.01 K/mm3 (0.00-0.05); IMMATURE GRAN PERCENT AUTO 0.4 % (0.0-0.4); LYMPHOCYTES ABSOLUTE AUTO 0.7 K/mm3 (1.0-4.8); LYMPHOCYTES PERCENT AUTO 26.2 % (24.0-44.0); MEAN CORPUSCULAR HEMOGLOBIN 27.5 pg (28.0-32.0); MEAN CORPUSCULAR HGB CONC 32.9 g/dl (32.0-36.0); MEAN CORPUSCULAR VOLUME 83.5 fl (83.0-99.0); MEAN PLATELET VOLUME 11.6 fl (9.4-12.3); MONOCYTES ABSOLUTE AUTO 0.7 K/mm3 (0.0-0.8); MONOCYTES PERCENT AUTO 24.1 % (0.0-8.0); NEUTROPHILS ABSOLUTE AUTO 1.4 K/mm3 (1.8-7.7); NEUTROPHILS PERCENT AUTO 48.5 % (41.0-71.0); PLATELET COUNT,PLT 155 K/mm3 (150-400); RED BLOOD CELL COUNT 4.66 M/mm3 (4.10-5.30); WHITE BLOOD CELL COUNT,WBC 2.82 K/mm3 (3.9-11.3)
[2024-07-15 21:16] LABS: CORONAVIRUS COVID-19 NAA NEGATIVE (NEGATIVE); INFLUENZA A NAA POSITIVE (NEGATIVE); RESPIRATORY SYNCYTIAL VIR NAA NEGATIVE (NEGATIVE)
[2024-07-15 21:23] LABS: A/G RATIO 1.2 (1-2); ALANINE AMINOTRANSFERASE,ALT 19 U/L (14-59); ALBUMIN 3.8 g/dl (3.4-5.0); ALKALINE PHOSPHATASE 34 U/L (46-116); ANION GAP 15.9 (5-15); ASPARTATE AMNIOTRANSFERASE,AST 16 U/L (15-37); BILIRUBIN TOTAL 0.4 mg/dL (0.2-1.0); BLOOD UREA NITROGEN,BUN 12 mg/dL (7-18); BUN/CREATININE RATIO 17.1 (14-18); CALCIUM 8.6 mg/dL (8.5-10.1); CARBON DIOXIDE,CO2 23 mEq/L (21-32); CHLORIDE,CL 102 mEq/L (98-107); CREATININE 0.7 mg/dL (0.55-1.02); EST CRCL DRUG DOSING (CG) 112.08 mL/min; ESTIMATED GFR 115 mL/min (>60); GLUCOSE RANDOM 86 mg/dL (70-99); POTASSIUM,K 3.9 mEq/L (3.5-5.1); PROTEIN TOTAL,TP 6.9 g/dl (6.4-8.2); SODIUM,NA 137 mEq/L (136-145)
[2024-07-15 21:25] LABS: TROPONIN I HIGH SENSITIVITY < 4 pg/mL (<=51)
[2024-07-15] MEDS ORDERED: Oseltamivir 75 MG Cap PO ONE (21:35)
== END 2024-07-15 21:50 | disposition home or self-care (01) ==
LOC: JD.ED 20:09
DX: J10.1 Influenza due to other identified influenza virus with other respiratory manifestations (principal); Z86.16 Personal history of COVID-19; Z91.030 Bee allergy status; Z79.899 Other long term (current) drug therapy
CPT/HCPCS: 0241U; 36415; 71045; 80053; 84484; 85025; 93005; 99285; 93010; 99283